=== PATIENT | female | born 1950 | race Caucasian/White ===

== ENCOUNTER 2018-08-13 05:35 | Day surgery (SDC) | payer MEDICARE, OTHER, SELFPAY ==
[2018-08-13] VITALS (8 sets, daily range): BP systolic 115–181; BP diastolic 61–87; PULSE 66–73; RESP 16; TEMP 36.2–36.7; O2SAT 98–100
--- NOTE | 2018-08-13 06:19 | HP.PCM_ITS ---
Problem List (1) Screening for intestinal cancer Status: Acute History of Present Illness Date of Admission: 08/13/18 The patient is a 68 year old F who enjoys good health. Her most recent colonoscopy was 10 years prior. She denies abdominal pain or bright red blood per rectum or melena. She has no known personal or family history of colon polyps or colon cancer. She has not had any unexpected weight loss. She was able to tolerate the bowel prep well Past Medical History Past Medical History (Chronic Problems): Chronic Problems Dyslipidemia (Chronic) History of hypertension (Chronic) Allergies No Known Allergies Allergy (Verified 08/10/18 15:51) Home Medications: Ambulatory Orders Medication Instructions Recorded Calcium (Elemental) [Os-Obed 500] 500 mg PO DAILY@0800 04/11/14 Multivit with Calcium,Iron,Min 1 each PO DAILY 04/11/14 [Multiple Vitamins For Women] Esomeprazole Mag Trihydrate 40 mg PO DINNER 08/10/18 [Nexium] Fluticasone 0.05% [Flonase Nasal 1 spray NASAL QHS 08/10/18 [place]] Glucosam/Som-Msm1/C/[place]/Bosw 1 each PO DAILY 08/10/18 [Osteo Bi-Flex Caplet] Psyllium [Metamucil] 1 packet PO DAILY 08/10/18 Selenium 50 mcg PO Q7D 08/10/18 Surgical History: noncontributory, - - Shoulder surgery Psychiatric History: No pertinent psych hx Smoking Status: Never smoker - *Family History Maternal History Items: No pertinent history Paternal History Items: No pertinent history Review of Systems Constitutional: Denies: Weight Change HEENT: Denies: Difficulty Hearing Cardiovascular: Denies: Chest Pain, Claudication Respiratory: Denies: Cough Gastrointestinal: Denies: Abdominal Pain Neurological: Denies: Balance problems Psychiatric: Denies: Anxiety Endocrine: Denies: Change in Body Habitus VTE Information - Inpt Only VTE Present on Admission: No Patient Problems: Active and Suspected Problems Screening for intestinal cancer (Acute) - Physical Exam General: Alert, Oriented x3, Cooperative, No apparent distress HEENT: Atraumatic Oral: Moist Mucosa Neck: Supple Lungs: Clear to auscultation Cardiovascular: Regular rate, Regular Rhythm Abdomen: Bowel Sounds Present, Soft, Non Tender, Non-Distended Extremities: No clubbing, No Calf Tenderness Skin: No rashes Lymphatic: No Cervical, Supraclavicular, or Inguinal Adenopathy Neurological: Cranial nerves II-XII grossly intact Psych/Mental Status: Normal Affect Assessment/Plan All Active Problems Screening for intestinal cancer (Acute) Hyperglycemia (Acute) Vertigo (Acute) I recommended the patient is screening colonoscopy. She is aware of the t echnique, benefits, risks, alternatives. She has had an opportunity to ask and have questions answered. She has been able to successfully complete her bowel prep. We will proceed as indicated. Primary care physician is Dr. Eleazar Skinner M.D., F.A.C.S.
--- NOTE | 2018-08-13 06:30 | COLBX_PTH ---
PATIENT: GRACIE CASTRO LOC: EN U#:[id number] AGE/SX: 68/F ROOM: RE08/13/[address]: Dr. Mitul Skinner MD : 1950 BED: DIS: 08/13/2018 SPEC #: [id number] RECD: 08/13/18 07:59 STATUS: SARINA LUNA #: [id number] JUANCARLOS: 08/13/18 06:[address]: Mitul Skinner DEPT: SURGICAL PATHOLOGY RECD BY: Dennis Whitley ENTERED: 08/13/18 09:29 SP TYPE: COLON BX OTHR DR: Dr. Eleazar Baeza MD Tissues: SPLENIC FLEXURE Procedures: Surgery Specimen Level IV HEADER OPERATION: Colonoscopy (MOD) PRE-OP DIAGNOSIS: Screening TISSUE SUBMITTED: Biopsy of splenic flexure polyp MICROSCOPIC DIAGNOSIS Splenic flexure polyp, biopsy: Tubular adenoma. EUGENE:mac 08/14/18 MICROSCOPIC DESCRIPTION Slides are reviewed. GROSS DESCRIPTION Received in fixative is one container labeled with the patient's name and designated biopsy of splenic flexure polyp. The specimen consists of one irregular fragment of light meza soft tissue that measures 0.3 x 0.3 x 0.1 cm. The specimen is totally submitted in one cassette. / SJ:rg 08/13/18 TC:1 CPT: 20074
--- NOTE | 2018-08-13 07:10 | OP.ENDO_ITS ---
Patient Name: Joy Gomez Procedure Date: 08/13/2018 6:21 AM Date of : 1950 Age: 68 Procedure: Colonoscopy Indications: Screening for colorectal malignant neoplasm Providers: Mitul Skinner MD Referring MD: Mitul Skinner MD Medicines: Midazolam 5.5 mg IV, Meperidine 100 mg IV Patient Profile: Last Colonoscopy: 10 years ago. Complications: No immediate complications. Procedure: Pre-Anesthesia Assessment: - Prior to the procedure, a History and Physical was performed, and patient medications and allergies were reviewed. The patient's tolerance of previous anesthesia was also reviewed. The risks and benefits of the procedure and the sedation options and risks were discussed with the patient. All questions were answered, and informed consent was obtained. Prior Anticoagulants: The patient has taken no previous anticoagulant or antiplatelet agents. ASA Grade Assessment: I - A normal, healthy patient. After reviewing the risks and benefits, the patient was deemed in satisfactory condition to undergo the procedure. After I obtained informed consent, the scope was passed under direct vision. Throughout the procedure, the patient's blood pressure, pulse, and oxygen saturations were monitored continuously. The colonoscope was introduced through the anus and advanced to the cecum, identified by appendiceal orifice and ileocecal valve. The colonoscopy was performed with moderate difficulty due to a tortuous colon. Successful completion of the procedure was aided by increasing the dose of sedation medication and applying abdominal pressure. The patient tolerated the procedure well. The quality of the bowel preparation was good. Moderate Sedation: Moderate (conscious) sedation was personally administered by the endoscopist. The following parameters were monitored: oxygen saturation, heart rate, blood pressure, and response to care. Total physician intraservice time was 30 minutes. Scope In: 6:33:38 AM Scope Withdrawal Time 0 hours 19 minutes 54 seconds Scope Out: 7:03:01 AM Total Procedure Duration Time 0 hours 29 minutes 23 seconds Findings: The digital rectal exam findings include anal stricture. Pertinent negatives include no anal lesion or abnormality was detected. A 6 mm polyp was found in the splenic flexure. The polyp was sessile. The polyp was removed with a cold biopsy forceps. Resection and retrieval were complete. The colon (entire examined portion) was moderately tortuous. The exam was otherwise without abnormality. Impression: - Anal stricture found on digital rectal exam. - One 6 mm polyp at the splenic flexure, removed with a cold biopsy forceps. Resected and retrieved. - Tortuous colon. - The examination was otherwise normal. Recommendation: - Written discharge instructions were provided to the patient. - Repeat colonoscopy in 5 years for surveillance based on pathology results. - Telephone my office for pathology results in 1 week. - Resume previous diet. - Continue present medications. Procedure Code(s): --- Professional --- 06907, Colonoscopy, flexible; with biopsy, single or multiple 18275, 59, Moderate sedation services provided by the same physician or other qualified health home health caregiver performing the diagnostic or therapeutic service that the sedation supports, requiring the presence of an independent trained observer to assist in the monitoring of the patient's level of consciousness and physiological status; initial 15 minutes of intraservice time, patient age 5 years or older Diagnosis Code(s): --- Professional --- Z12.11, Encounter for screening for malignant neoplasm of colon K62.4, Stenosis of anus and rectum D12.3, Benign neoplasm of transverse colon (hepatic flexure or splenic flexure) Q43.8, Other specified congenital malformations of intestine CPT copyright 2017 [employer]. All rights reserved. The codes documented in this report are preliminary and upon certified procedural coder review may be revised to meet current compliance requirements. Mitul Skinner MD 08/13/2018 7:10:23 AM This report has been signed electronically. Number of Addenda: 0 Note Initiated On: 08/13/2018 6:21 AM
== END 2018-08-13 08:04 | disposition home or self-care (01) ==
LOC: EN 05:36 → AC 05:39
PROVIDERS: Family Provider Family Medicine; PCP Family Medicine; Visit Provider Surgery
PROC: 0DJD8ZZ Inspection of Lower Intestinal Tract, Via Natural or Artificial Opening Endoscopic (ICD-10-PCS; CPT 45378; principal; 2018-08-13 06:25)
DX: Z12.11 Encounter for screening for malignant neoplasm of colon (principal); D12.3 Benign neoplasm of transverse colon; K62.4 Stenosis of anus and rectum; Q43.8 Other specified congenital malformations of intestine; E78.5 Hyperlipidemia, unspecified; Z86.79 Personal history of other diseases of the circulatory system; Z79.899 Other long term (current) drug therapy
CPT/HCPCS: 45380; 88305; 99152; 99153; J7120

== ENCOUNTER → 2018-10-12 14:32 | Outpatient (CLI) | payer MEDICARE, OTHER, SELFPAY ==
--- NOTE | 2018-10-12 14:35 | BI_ITS ---
MAMMOGRAPHY - BILATERAL SCREENING REASON FOR EXAM: Female, 68 years old. Routine annual screening examination. PERTINENT HISTORY: Sister with breast cancer. Mother with breast cancer. TECHNIQUE: Digital bilateral breast samia (3D mammographic acquisition) in the CC and MLO projections. 2-D mediolateral oblique (MLO) and craniocaudad (CC) views of both breasts were obtained. CAD: Full Field Digital Mammography with Computer Added Detection was performed. COMPARISON: Comparison is made with prior study dated September 16, 2017 and September 10, 2016. FINDINGS: Breast Composition: There are scattered areas of fibroglandular density. There are no dominant masses or suspicious calcifications. No other significant abnormalities are identified. There has been no significant change since the prior study. BI/SCREENING MAMM (CAD), BILAT IMPRESSION: Stable bilateral screening mammogram. Yearly follow-up mammogram recommended. (A) ASSESSMENT CATEGORY: BIRADS Category 1: Negative. A letter regarding these results will be sent to the patient by the facility within 30 days. Approximately 10% of breast cancers are not detected by mammography. A normal mammogram should not delay biopsy of a clinically suspicious abnormality. [id number] Electronically Signed: Anton Love MD at 15:40 EST Tel [phone], Service support ,
--- OUTSIDE RECORDS SUMMARY | 2018-11-24 12:23 | XMS RPT_ITS | Clinical Summary ---
:1950 Author Organization Formerly [facility], [facility] Address [facility] [place] [address] Phone Care Team Providers Name Role Phone Tracey Mccann MD Unavailable Conditions or Problems Problem Name Problem Onset Status Entry Provider Comment Standard Annotate Code Date Date Description Vaginal atrophy 640467381 Active Tracey Aguayo Atrophy of (SNOMED [address]) MD Encounter for [id number] Active Tracey Aguayo Gynecologic gynecological (SNOMED 0 [address]) (general) (routine) with abnormal findings Screening [id number] Active Tracey Aguayo Screening mammogram for (SNOMED 0/06 0/08 [address] breast cancer [address]) Medications Medication Instructions Start Stop Generic Name NDC Provider Date Date OSPHENA 60 MG One tablet by / OSPEMIFENE 21031873950 Tracey Aguayo TABS mouth daily 23 Siobhan DELUCA NEXIUM 40 MG / ESOMEPRAZOLE [id number] Tracey Aguayo CPDR 23 MAGNESIUM Siobhan DELUCA METRONIDAZOLE / METRONIDAZOLE [id number] Tracey Aguayo 0.75 % GEL 23 Siobhan DELUCA THERATEARS / AQE-MDI-LDOZKMC [id number] Tracey Aguayo NUTRITION CAPS 23 D OIL-VITAMIN E Siobhan DELUCA COQ10 200 MG / COENZYME Q10 [id number] Tracey Aguayo CAPS 23 Siobhan DELUCA OCEANIC SELENIUM / SELENIUM [id number] Tracey Aguayo 200 MCG TABS 23 Siobhan DELUCA MULTIVITAMIN / MULTIPLE [id number] Tracey Aguayo WOMEN 50+ TABS 23 VITAMINS-MINERA Siobhan EASTON MD CALCIUM + D3 2017/10/ CALCIUM [id number] Tracey Olivier 600-800 MG-UNIT 23 CARB-CHOLECALCI Siobhan ECHOLS MD Medications Administered No information available. Allergies, Adverse Reactions, Alerts Observed no known allergies at Results Date Name Value Unit Range Flag Description Office Visit: new annual MEDS REVIEW Done Documentation of current medications (procedure) FALLRSFADY No Fall risk assessment MAMMOGRAM Normal Bilateral Breast Mammogram screening PAP SMEAR Normal General categories [Interpretation] of Cervical or vaginal smear or scraping by Cyto stain ORALTOBACUSE Never Tobacco smoking status NHIS SMOK STATUS Never smoker Tobacco use [facility] Plan of Care Type Date Detail Pending order Mammogram, Screening, both breasts Procedures No information available. Vital Signs Date Name Value Unit Description BMI (Body Mass Index) 21.46 kg/m2 Body Mass Index [Ratio] Body Temperature 97.4 [degF] temperature E&M Body Temperature 36.33 [place] temperature in centigrade E&M BP Diastolic 68 mm[Hg] blood pressure, diastolic - 8462-4 BP Systolic 137 mm[Hg] blood pressure, systolic - 8480-6 Heart Rate 65 /min pulse rate E&M - 8867-4 Height 66 [in_us] height E&M - 8302-2 Height 167.64 cm height in centimeters E&M Respiratory Rate 16 /min respiratory rate E&M - 9279-1 Weight Measured 133.0 [lb_av] weight E&M - 3141-9 Weight Measured 60.33 kg weight in kilograms E&M
--- OUTSIDE RECORDS SUMMARY | 2018-11-24 12:23 | XMS RPT_ITS ---
:1950 Author Organization [facility] Care Team Providers Name Role Phone Nurse, Surgery Attending Unavailable Eleazar Baeza Referring Unavailable Cebul, Mitul Attending Unavailable Cebul, Mitul Referring Unavailable Baeza, Eleazar Primary Care Unavailable Cebul, Mitul Attending Unavailable Cebul, Mitul Referring Unavailable Baeza, Eleazar Primary Care Unavailable Cebul, Mitul Consulting Unavailable Baeza, Eleazar Attending Unavailable Baeza, Eleazar Referring Unavailable Baeza, Eleazar Primary Care Unavailable PROBLEMS PROBLEMS No Problem Records FoundPROCEDURES PROCEDURES No Procedure Records FoundRESULTS RESULTS SCREENING MAMM (CAD), Observed: 10/12/2018 Status: F Source: [facility] 2:35 PM [facility] REPOSITORY [facility] Imaging Services [address] [place] [address] SCREENING MAMM (CAD), BILAT MR#: [id number] Acct: [id number] Name: JOY CASTRO Rep #: [id number] : 1950 F 68 From: Anton Love MD PCP: Eleazar Baeza MD Status: [facility] Study: SCREENING MAMM (CAD), BILAT Date of Exam: 10/12/18 Exam# [id number] Ordering Dr: Eleazar Baeza MD MAMMOGRAPHY - BILATERAL SCREENING REASON FOR EXAM: Female, 68 years old. Routine annual screening examination. PERTINENT HISTORY: Sister with breast cancer. Mother with breast cancer. TECHNIQUE: Digital bilateral breast samia (3D mammographic acquisition) in the CC and MLO projections. 2-D mediolateral oblique (MLO) and craniocaudad (CC) views of both breasts were obtained. CAD: Full Field Digital Mammography with Computer Added Detection was performed. COMPARISON: Comparison is made with prior study dated September 16, 2017 and September 10, 2016. FINDINGS: Breast Composition: There are scattered areas of fibroglandular density. There are no dominant masses or suspicious calcifications. No other significant abnormalities are identified. There has been no significant change since the prior study. BI/SCREENING MAMM (CAD), BILAT IMPRESSION: Stable bilateral screening mammogram. Yearly follow-up mammogram recommended. (A) ASSESSMENT CATEGORY: BIRADS Category 1: Negative. A letter regarding these results will be sent to the patient by the facility within 30 days. Approximately 10% of breast cancers are not detected by mammography. A normal mammogram should not delay biopsy of a clinically suspicious abnormality. [id number] Electronically Signed: Anton Love MD at 15:40 EST Tel [phone], Service support , CC: Eleazar Baeza MD Bullet Assembly Press Operator: Signed OPERATIVE REPORT - Observed: 08/13/2018 Status: F Source: [facility] 7:10 AM [facility] REPOSITORY [facility] Medical Records Department [address] [place] [address] Operative Report - Endoscopy MR#: [id number] Acct: [id number] Name: JOY CASTRO Rep #: [id number] : 1950 68 From: Mitul Skinner MD PCP: Eleazar Baeza MD Status: REG [facility] Patient Name: Joy Castro Procedure Date: 08/13/2018 6:21 AM Date of : 1950 Age: 68 Procedure: Colonoscopy Indications: Screening for colorectal malignant neoplasm Providers: Mitul Skinner MD Referring MD: Mitul Skinner MD Medicines: Midazolam 5.5 mg IV, Meperidine 100 mg IV Patient Profile: Last Colonoscopy: 10 years ago. Complications: No immediate complications. Procedure: Pre-Anesthesia Assessment: - Prior to the procedure, a History and Physical was performed, and patient medications and allergies were reviewed. The patient's tolerance of previous anesthesia was also reviewed. The risks and benefits of the procedure and the sedation options and risks were discussed with the patient. All questions were answered, and informed consent was obtained. Prior Anticoagulants: The patient has taken no previous anticoagulant or antiplatelet agents. ASA Grade Assessment: I - A normal, healthy patient. After reviewing the risks and benefits, the patient was deemed in satisfactory condition to undergo the procedure. After I obtained informed consent, the scope was passed under direct vision. Throughout the procedure, the patient's blood pressure, pulse, and oxygen saturations were monitored continuously. The colonoscope was introduced through the anus and advanced to the cecum, identified by appendiceal orifice and ileocecal valve. The colonoscopy was performed with moderate difficulty due to a tortuous colon. Successful completion of the procedure was aided by increasing the dose of sedation medication and applying abdominal pressure. The patient tolerated the procedure well. The quality of the bowel preparation was good. Moderate Sedation: Moderate (conscious) sedation was personally administered by the endoscopist. The following parameters were monitored: oxygen saturation, heart rate, blood pressure, and response to care. Total physician intraservice time was 30 minutes. Scope In: 6:33:38 AM Scope Withdrawal Time 0 hours 19 minutes 54 seconds Scope Out: 7:03:01 AM Total Procedure Duration Time 0 hours 29 minutes 23 seconds Findings: The digital rectal exam findings include anal stricture. Pertinent negatives include no anal lesion or abnormality was detected. A 6 mm polyp was found in the splenic flexure. The polyp was sessile. The polyp was removed with a cold biopsy forceps. Resection and retrieval were complete. The colon (entire examined portion) was moderately tortuous. The exam was otherwise without abnormality. Impression: - Anal stricture found on digital rectal exam. - One 6 mm polyp at the splenic flexure, removed with a cold biopsy forceps. Resected and retrieved. - Tortuous colon. - The examination was otherwise normal. Recommendation: - Written discharge instructions were provided to the patient. - Repeat colonoscopy in 5 years for surveillance based on pathology results. - Telephone my office for pathology results in 1 week. - Resume previous diet. - Continue present medications. Procedure Code(s): --- Professional --- 44067, Colonoscopy, flexible; with biopsy, single or multiple 24996, 59, Moderate sedation services provided by the same physician or other qualified health home health aide caregiver performing the diagnostic or therapeutic service that the sedation supports, requiring the presence of an independent trained observer to assist in the monitoring of the patient's level of consciousness and physiological status; initial 15 minutes of intraservice time, patient age 5 years or older Diagnosis Code(s): --- Professional --- Z12.11, Encounter for screening for malignant neoplasm of colon K62.4, Stenosis of anus and rectum D12.3, Benign neoplasm of transverse colon (hepatic flexure or splenic flexure) Q43.8, Other specified congenital malformations of intestine CPT copyright 2017 [employer]. All rights reserved. The codes documented in this report are preliminary and upon unix analyst review may be revised to meet current compliance requirements. Mitul Skinner MD 08/13/2018 7:10:23 AM This report has been signed electronically. Number of Addenda: 0 Note Initiated On: 08/13/2018 6:21 AM 08/13/18 0710 Date Mitul Skinner MD Cosigner Signature: Date (if indicated) CC: Eleazar Baeza MD; Mitul Skinner MD Date Dictated: 08/13/18 0621 Date Transcribed: Bullet Assembly Press Operator: MARLO Signed COLON BIOPSY (CHOOSE Observed: 08/13/2018 Status: F Source: [place] SITE) 6:30 AM [facility] REPOSITORY Patient: JOY CASTRO : 1950 (68/F) Acct Num: [id number] Phys: Brody DELUCA,Mitul Unit Num: [id number] Loc: EN Specimen: [id number] Received: 08/13/18 - 0759 Spec Type: COLON BX TISSUES 1 TISSUES: SPLENIC FLEXURE GROSS DESCRIPTION Received in fixative is one container labeled with the patient's name and designated biopsy of splenic flexure polyp. The specimen consists of one irregular fragment of light meza soft tissue that measures 0.3 x 0.3 x 0.1 cm. The specimen is totally submitted in one cassette. / SJ:mac 08/13/18 TC:1 CPT: 26010 HEADER OPERATION: Colonoscopy (MOD) PRE-OP DIAGNOSIS: Screening TISSUE SUBMITTED: Biopsy of splenic flexure polyp MICROSCOPIC DESCRIPTION Slides are reviewed. MICROSCOPIC DIAGNOSIS Splenic flexure polyp, biopsy: Tubular adenoma. SJ:mac 08/14/18 Signed Earl Sykes 08/14/18 <signature on file> Performed By: #### PCOLBX #### [facility] [address] [place], [address] HISTORY AND PHYSICAL Observed: 08/13/2018 Status: F Source: [place] EXAM 6:19 AM [facility] REPOSITORY [facility] Medical Records Department [address] [place] [address] History and Physical 08/13/18 0617 MR#: [id number] Acct: [id number] Name: JOY CASTRO Rep #: [id number] : 1950 68 From: Mitul Skinner MD PCP: Eleazar Baeza MD Status: REG [facility] Y Location: [place] [address] Problem List (1) Screening for intestinal cancer Status: Acute History of Present Illness Date of Admission: 08/13/18 The patient is a 68 year old F who enjoys good health. Her most recent colonoscopy was 10 years prior. She denies abdominal pain or bright red blood per rectum or melena. She has no known personal or family history of colon polyps or colon cancer. She has not had any unexpected weight loss. She was able to tolerate the bowel prep well Past Medical History Past Medical History (Chronic Problems): Chronic Problems Dyslipidemia (Chronic) History of hypertension (Chronic) Allergies No Known Allergies Allergy (Verified 08/10/18 15:51) Home Medications: Ambulatory Orders Medication Instructions Recorded Calcium (Elemental) [Os-Obed 500] 500 mg PO DAILY@0800 04/11/14 Surgical History: noncontributory, - - Shoulder surgery Psychiatric History: No pertinent psych hx Smoking Status: Never smoker - *Family History Maternal History Items: No pertinent history Paternal History Items: No pertinent history Review of Systems Constitutional: Denies: Weight Change HEENT: Denies: Difficulty Hearing Cardiovascular: Denies: Chest Pain, Claudication Respiratory: Denies: Cough Gastrointestinal: Denies: Abdominal Pain Neurological: Denies: Balance problems Psychiatric: Denies: Anxiety Endocrine: Denies: Change in Body Habitus VTE Information - Inpt Only VTE Present on Admission: No Patient Problems: Active and Suspected Problems Screening for intestinal cancer (Acute) - Physical Exam General: Alert, Oriented x3, Cooperative, No apparent distress HEENT: Atraumatic Oral: Moist Mucosa Neck: Supple Lungs: Clear to auscultation Cardiovascular: Regular rate, Regular Rhythm Abdomen: Bowel Sounds Present, Soft, Non Tender, Non-Distended Extremities: No clubbing, No Calf Tenderness Skin: No rashes Lymphatic: No Cervical, Supraclavicular, or Inguinal Adenopathy Neurological: Cranial nerves II-XII grossly intact Psych/Mental Status: Normal Affect Assessment/Plan All Active Problems Screening for intestinal cancer (Acute) Hyperglycemia (Acute) Vertigo (Acute) I recommended the patient is screening colonoscopy. She is aware of the technique, benefits, risks, alternatives. She has had an opportunity to ask and have questions answered. She has been able to successfully complete her bowel prep. We will proceed as indicated. Primary care physician is Dr. Eleazar Skinner M.D., F.A.C.S. 08/13/18 0619 <Electronically signed by Mitul Skinner MD> Date Mitul Skinner MD Cosigner Signature: Date (if applicable) CC: Eleazar Baeza MD; Mitul Skinner MD Signed ALLERGIES ALLERGIES DATE TYPE / CODE NAME / CODE REACTION SEVERITY SOURCE 08/10/2018 Drug No Known Unknown [place] [facility] Allergy/4160 Allergies/F00 Hospital 51957(SNOMED 9568083(RXNOR Repository CT) M) ENCOUNTERS ENCOUNTERS ADMIT/DISCHARGE ACCOUNT ADMITTING ENCOUNTER LOCATION SOURCE NUMBER CLASS 10/12/2018 [id number] Amb[place] [facility] ing:OPBI Repository 08/13/2018 [id number] Ambulatory BMSBuilding:B [place] [facility] Repository 08/13/2018/ [id number] Ambulatory [place] 9 [facility] ing:EN Repository 05/22/2018/ [id number] Ambulatory BMSBuilding:B [place] [facility] Repository PAYERS PAYERS ENCOUNTER GUARANTOR PAYER SUBSCRIBER SOURCE 10/12/2018 JOY [place] [id number] Insurance:MEDICARE ZEMROCKDOB: [id number] [address]Mja: Number: Repository [id number] () Date:2018-09-22 10/12/2018 Secondary JOY Gregory Insurance:MEDICAL ZEMROCKDOB: [facility] [id number] [facility] Number: Repository [id number] Date:2920-74-04PW [address] [place] [address]OZ: 10/12/2018 Tertiary NOT GIVENUNK [place] Insurance:SELF PAY [facility] Number: Effective Repository Date:2018-09-22 08/13/2018 JOY J Primary JOY J [place] [id number] Insurance:MEDICARE ZEMROCKDOB: [facility] [id number] [address]Qat: Number: Repository [id number] (HP) Date:2018-05-22 08/13/2018 Secondary JOY J [place] Insurance:MEDICAL ZEMROCKDOB: [facility] [id number] Hospital Number: Repository [id number] Date:[id number] [address]JU: 08/13/2018 Tertiary NOT GIVENUNK [place] Insurance:SELF PAY [facility] Number: Effective Repository Date:2018-08-13 08/13/2018 JOY J Primary JOY J [place] [id number] Insurance:MEDICARE ZEMROCKDOB: [facility] PART A [facility] [id number] [address]Hyd: Number: Repository [id number] (HP) Date:2018-05-22 08/13/2018 Secondary JOY J [place] Insurance:MEDICAL ZEMROCKDOB: [facility] [id number] Hospital Number: Repository [id number] Date:[id number] [address]DW: 08/13/2018 Tertiary NOT GIVENUNK [place] Insurance:SELF PAY [facility] Number: Effective Repository Date:2018-05-22 05/22/2018 JOY J Primary JOY J [place] [id number] Insurance:MEDICARE ZEMROCKDOB: [facility] [id number] [facility] Hospital [address]Erx: Number: Repository [id number] (HP) Date:2018-05-22 05/22/2018 Secondary JOY J [place] Insurance:MEDICAL ZEMROCKDOB: [place] [id number] Hospital Number: Repository [id number] Date:0158-14-86WW [address], [place] [address]HA: 05/22/2018 Tertiary NOT GIVENMARILYN [place] Insurance:SELF PAY [facility] Number: Effective Repository Date:2018-05-22
--- OUTSIDE RECORDS SUMMARY | 2018-11-24 12:23 | XMS RPT_ITS | Clinical Summary ---
:1950 [address] [facility], [facility] Address [address] [place] [address] Phone Care Team Providers Name Role Phone Siobhan DELUCA, Tracey Aguayo Unavailable Conditions or Problems Problem Problem Onset Status Entry Provider Comment Standard Annotate Name Code Date Date Description Screening [id number] Active Tracey Aguayo Screening mammogram (SN / Siobhan mammography for breast CT) cancer Medications No information available. Medications Administered No information available. Allergies, Adverse Reactions, Alerts No information available. Results No information available. Plan of Care Type Date Detail Appointment 10:00 AM Tracey Mccann MD, [address] [place] [address], Third Floor, [place], [address], Pending order Mammogram, Screening, both breasts Procedures No information available. Vital Signs Date Name Value Unit Description Body Temperature 97.9 [degF] temperature E&M
--- OUTSIDE RECORDS SUMMARY | 2018-11-24 12:23 | XMS RPT_ITS | Clinical Summary ---
:1950 Author Organization [facility], [facility] Address [facility] [place] [address] Phone Care Team Providers Name Role Phone Tracey Mccann MD Unavailable Conditions or Problems Problem Name Problem Onset Status Entry Provider Comment Standard Annotate Code Date Date Description Vaginal atrophy [id number] Active Tracey Aguayo Atrophy of (SNOMED [address]) MD Encounter for 92733690 Active Tracey Aguayo Gynecologic gynecological (SNOMED 0 [address]) (general) (routine) with abnormal findings Screening 45895790 Active Tracey Aguayo Screening mammogram for (SNOMED 006 0/08 Marcanthjohn mamm[address] breast cancer CT) Medications Medication Instructions Start Stop Generic Name NDC Provider Date Date OSPHENA 60 MG One tablet by / OSPEMIFENE 10582711866 Tracey Aguayo TABS mouth daily 23 Siobhan DELUCA NEXIUM 40 MG / ESOMEPRAZOLE 94773146438 Tracey Aguayo CPDR 23 MAGNESIUM Siobhan DELUCA METRONIDAZOLE / METRONIDAZOLE 13130199134 Tracey Aguayo 0.75 % GEL 23 Siobhan DELUCA THERATEARS / [id number] 10000924116 Tracey Aguayo NUTRITION CAPS 23 D OIL-VITAMIN E Siobhan DELUCA COQ10 200 MG / COENZYME Q10 82432663036 Tracey Aguayo CAPS 23 Siobhan DELUCA OCEANIC SELENIUM / SELENIUM 98732602865 Tracey Aguayo 200 MCG TABS 23 Siobhan DELUCA MULTIVITAMIN / MULTIPLE 97731532227 Tracey Aguayo WOMEN 50+ TABS 23 VITAMINS-MINERA Siobhan EASTON MD CALCIUM + D3 2017/10/ CALCIUM 64763666624 Tracey Aguayo 600-800 MG-UNIT 23 CARB-CHOLECALCI Siobhan ECHOLS MD Medications Administered No information available. Allergies, Adverse Reactions, Alerts Observed no known allergies at Results Date Name Value Unit Range Flag Description Office Visit: new annual MEDS REVIEW Done Documentation of current medications (procedure) FALLRSKABARBRAES No Fall risk assessment MAMMOGRAM Normal Bilateral Breast Mammogram screening PAP SMEAR Normal General categories [Interpretation] of Cervical or vaginal smear or scraping by Cyto stain ORALTOBACUSE Never Tobacco smoking status NHIS SMOK STATUS Never smoker Tobacco use [facility] Plan of Care Type Date Detail Appointment 10:00 AM Tracey Mccann MD, [address] Floor, [place], [address], Pending order Mammogram, Screening, both breasts Procedures No information available. Vital Signs Date Name Value Unit Description BMI (Body Mass Index) 21.46 kg/m2 Body Mass Index [Ratio] Body Temperature 97.4 [degF] temperature E&M Body Temperature 36.33 Haaw temperature in centigrade E&M BP Diastolic 68 [...]
== END ==
PROVIDERS: Family Provider Family Medicine; PCP Family Medicine; Referring Provider Family Medicine; Visit Provider Family Medicine
DX: Z12.31 Encounter for screening mammogram for malignant neoplasm of breast (principal)
CPT/HCPCS: 77063; 77067

== ENCOUNTER → 2018-11-12 09:34 | Outpatient (CLI) | payer MEDICARE, OTHER, SELFPAY ==
[2018-11-12 13:06] LABS: BUN 16 mg/dL (7-18); Creatinine, Serum 0.53 mg/dL (0.55-1.02); Glucose 87 mg/dL (74-106)
[2018-11-12 13:07] LABS: Anion Gap 8 (5-15); BUN/Creat Ratio 30.2 RATIO (10-20); Calcium,Total 8.3 mg/dL (8.5-10.1); Chloride 110 mmol/L (98-107); Cholesterol 237 mg/dL (200); EST Glomerular Filtration Rate 123 mL/min (>60); Est Glom Filt Rate - Afr Amer 149 mL/min (>60); Free T3 2.7 pg/mL (2.18-3.98); High Density Lipoprotein 92 mg/dL; Potassium 3.9 mmol/L (3.5-5.1); Sodium Level 144 mmol/L (136-145); T4 Free Direct 0.92 ng/dL (0.76-1.46); Thyroid Stim Hormone (TSH) 5.23 uIU/mL (0.358-3.74); Triglycerides 75 mg/dL; Very Low Density Lipoprotein 15 mg/dL (5-40)
--- NOTE | 2018-11-12 13:16 | BD_ITS ---
STUDY: DUAL ENERGY X-RAY ABSORPTIOMETRY / DXA REASON FOR EXAM: Female, 68 years old. The patient is postmenopausal. Loss of height. TECHNIQUE: Bone Mineral Density (BMD) measurements of lumbar spine and bilateral hips were obtained. COMPARISON: Comparison is made with prior study dated January 26, 2013. FINDINGS: Lumbar Spine (L1-L4): g/cm2 (1.009) / T-score (-1.4) / Z-score (0.2) Findings are suggestive of osteopenia with a moderate fracture risk. Increased thoracic kyphosis. Left Femur Total: g/cm2 (0.763) / T-score (-1.9) / Z-score (-0.7) Left Femoral Neck: g/cm2 (0.793) / T-score (-1.8) / Z-score (-0.2) Right Femur Total: g/cm2 (0.743) / T-score (-2.1) / Z-score (-0.8) Right Femoral Neck: g/cm2 (0.750) / T-score (-2.1) / Z-score (-0.5) The T-Scores on the most recent prior examination were: Lumbar Spine (L1-L4): There has been worsening of bone density since the previous examination. Left Femur Total: which represents a worsening of 5%. Right Femur Total: which represents a worsening of 4.4%. BD/Dexa Bone Density Study IMPRESSION: The patient is considered osteopenic as outlined below according to World Richard Organization (WHO) criteria with a moderate fracture risk. There has been worsening of bone density since the previous examination. Reference Information: The T-score is the number of standard deviations above or below the standard which is normal for young adults at their peak bone mineral density. The World Health Organization (WHO) interprets the T-scores as follows: Above -1 Normal bone density Between -1 and -2.5 Osteopenia Equal to / or below -2.5 Osteoporosis As a practical clinical guideline, osteopenia may be graded as follows: Mild -1 through -1.5 Moderate -1.6 through -2.0 Severe -2.1 through -2.4 The Z-score is the number of standard deviations above or below age-matched controls. A Z-score of less than -1.5 would be considered abnormal. References: 1. NIH Osteoporosis and Related Bone Diseases http://www.osteo.org 2. International Society for Clinical Densitometry http://www.iscd.org 3. National Osteoporosis Foundation http://www.nof.org Electronically Signed: Anton Love MD at 9:58 EST Tel [phone], Service support ,
== END ==
PROVIDERS: Family Provider Family Medicine; PCP Family Medicine; Visit Provider Family Medicine
DX: M85.80 Other specified disorders of bone density and structure, unspecified site (principal); I10 Essential (primary) hypertension; E03.9 Hypothyroidism, unspecified; Z78.0 Asymptomatic menopausal state
CPT/HCPCS: 36415; 77080; 80048; 80061; 84439; 84443; 84481

== ENCOUNTER → 2018-12-31 09:39 | Outpatient (CLI) | payer MEDICARE, OTHER, SELFPAY ==
[2018-12-30 11:18] VITALS: BMI 20.9
[2019-01-01 18:38] LABS: Rubeola IgG Ab > 300.0 AU/mL (Immune >29.9)
== END ==
PROVIDERS: Family Provider Family Medicine; PCP Family Medicine; Visit Provider Family Medicine
DX: Z78.9 Other specified health status (principal)
CPT/HCPCS: 36415; 86765

== ENCOUNTER → 2019-02-23 | Outpatient (CLI) | payer MEDICARE, OTHER, SELFPAY ==
[2018-12-30 11:18] VITALS: BMI 20.9
[2019-02-23 10:59] LABS: Albumin, Serum 3.4 g/dL (3.2-5.0); BUN 15 mg/dL (7-18); BUN/Creat Ratio 27.4 RATIO (10-20); Calcium,Total 8.3 mg/dL (8.5-10.1); Chloride 109 mmol/L (98-107); Creatinine, Serum 0.55 mg/dL (0.55-1.02); EST Glomerular Filtration Rate 118 mL/min (>60); Est Glom Filt Rate - Afr Amer 142 mL/min (>60); Free T3 2.1 pg/mL (2.18-3.98); Glucose 81 mg/dL (74-106); Magnesium 2.2 mg/dL (1.6-2.6); Phosphorus 3.3 mg/dL (2.5-4.9); Potassium 3.9 mmol/L (3.5-5.1); Sodium Level 140 mmol/L (136-145); T4 Free Direct 0.79 ng/dL (0.76-1.46); Thyroid Stim Hormone (TSH) 5.73 uIU/mL (0.358-3.74)
[2019-02-23 11:00] LABS: Vitamin D,25 Hydroxy 44.3 ng/mL (29.95-100.01)
== END | disposition home or self-care (01) ==
LOC: MFPLAB 09:20
PROVIDERS: Family Provider Family Medicine; PCP Family Medicine; Referring Provider Family Medicine; Visit Provider Family Medicine
DX: R79.89 Other specified abnormal findings of blood chemistry (principal); M85.80 Other specified disorders of bone density and structure, unspecified site
CPT/HCPCS: 36415; 80069; 82306; 83735; 84439; 84443; 84481

== ENCOUNTER → 2019-04-22 | Outpatient (CLI) | payer MEDICARE, OTHER, SELFPAY ==
[2018-12-30 11:18] VITALS: BMI 20.9
[2019-04-22 12:31] LABS: T4 Free Direct 0.86 ng/dL (0.76-1.46); Thyroid Stim Hormone (TSH) 3.03 uIU/mL (0.358-3.74)
== END | disposition home or self-care (01) ==
LOC: MFPLAB 09:39
PROVIDERS: Family Provider Family Medicine; PCP Family Medicine; Referring Provider Family Medicine; Visit Provider Family Medicine
DX: R79.89 Other specified abnormal findings of blood chemistry (principal)
CPT/HCPCS: 36415; 84439; 84443

== ENCOUNTER → 2019-06-24 | Outpatient (CLI) | payer MEDICARE, OTHER, SELFPAY ==
[2018-12-30 11:18] VITALS: BMI 20.9
[2019-06-24 10:27] LABS: T4 Free Direct 1.14 ng/dL (0.76-1.46); Thyroid Stim Hormone (TSH) 1.38 uIU/mL (0.358-3.74)
== END | disposition home or self-care (01) ==
PROVIDERS: Family Provider Family Medicine; PCP Family Medicine; Referring Provider Family Medicine; Visit Provider Family Medicine
DX: E03.9 Hypothyroidism, unspecified (principal); R79.89 Other specified abnormal findings of blood chemistry
CPT/HCPCS: 36415; 84439; 84443

== ENCOUNTER 2019-09-22 09:55 | Emergency (ER) | payer MEDICARE, OTHER, SELFPAY ==
[2019-08-17 16:20] VITALS: BMI 20.9
[2019-09-22 09:56] VITALS: BP 165/91; PULSE 75; RESP 14; TEMP 36.8; O2SAT 100; BMI 21.5
--- NOTE | 2019-09-22 09:58 | ED.RN ---
SPOUSE RUDE IN TRIAGE. PT COME IN AFTER A PT WITH CP AND NEW ONSET AFIB BUT SPOUSE THOUGHT HIS SHOULD BE SEEN FIRST. TRIED TO EXPLAIN TO SPOUSE THE PROCESS, BUT SPOUSE DID NOT CARE.
--- NOTE | 2019-09-22 10:39 | CT_ITS ---
STUDY: CT ABDOMEN AND PELVIS WITHOUT CONTRAST REASON FOR EXAM: Female, 69 years old. Right lower quadrant pain. RADIATION DOSAGE (If Supplied By Facility): CTDIvol = ( 9.15 ) mGy, DLP = ( 714.94 ) mGycm TECHNIQUE: Transaxial images were obtained from the dome of the diaphragm to the symphysis pubis without oral contrast, and without intravenous contrast. Sagittal and coronal images were reconstructed. Individualized dose optimization techniques were used for this CT. COMPARISON: None. FINDINGS: Minimal increased linear markings at the lung bases suggestive of linear atelectasis and/or scarring. The visualized portions of the heart are within normal limits. Normal liver. Normal gallbladder and extrahepatic biliary system. Normal spleen. Normal pancreas. Normal bilateral adrenal glands. Right perinephric and periureteric stranding. Moderate degree of right hydronephrosis and right hydroureter due to a 3 mm catheter is at the right ureterovesical junction. A small amount of perinephric fluid is seen on the right side. There are several nonobstructive right intrarenal calculi the largest measuring 7 mm. Left parapelvic cysts. Normal visualized stomach. Normal small intestine. Normal colon. The appendix is visualized and appears normal. Normal abdominal aorta. Normal inferior vena cava. Normal retroperitoneum. Normal urinary bladder. There is a small umbilical hernia containing fat. Normal osseous structures. CT/Abdomen/Pelvis W IV Cont ONLY IMPRESSION: 3 mm calculus at the right uterovesical junction causing right hydronephrosis with right hydroureter and perinephric and periureteric stranding. Nonobstructive right intrarenal calculi. Left parapelvic renal cysts. Linear atelectasis and/or scarring at the lung bases. Electronically Signed: Anton Love, at 12:18 EST , Service support ,
--- NOTE | 2019-09-22 10:41 | ED.DCSUM_ITS ---
- ER Visit Summary Date of Service: 09/22/19 Chief Complaint: Right lower quadrant abdominal pain History of Present Illness: The patient is a 69 F past medical history of hypothyroidism. Patient's had right lower quadrant abdominal pain since 2 hours ago. Started stated, high right flank and out to the right lower quadrant. Associated nausea vomiting. No diarrhea or fever. Normal bowel movements today. No dysuria. No prior history. No trauma. No history of stone. Physical Examination: Older female complaining of pain. at bedside. Vital signs are stable afebrile. HEENT exam normal. Neck nontender. Lungs clear to auscultation. Heart regular rhythm no murmur. Abdomen soft. Nondistended. Normal bowel sounds no peritoneal signs. No hernias or masses. No signs of obstruction. She points to the right lower quadrant is not specifically tender. Back nontender. Patient moving all 4 extremities. Neurovascular intact. Neurologically she is awake alert with no focal motor deficits. Test Results: CBC shows white count 9. Hemoglobin 12. Chemistries normal normal BUN and creatinine is 0.8. Liver enzymes normal. UA normal. Very small amount of blood and macroscopic none in the micro. No signs of infection. No nitrates. CAT scan of the abdomen and pelvis with shows a right UVJ stone with hydro-about 3 mm. Was also 2 stones in the right kidney. Emergency Department Course and Treatment: Patient with right lower quadrant abdominal pain clinically I think this may be a kidney stone appendicitis is definitely in the differential but she is really not reproducibly tender. T reated with morphine and Zofran. IV fluids. I did choose to do a CT with IV contrast due to her being thin and the potential is being appendicitis even though I clinically think is more likely a stone. Treatment Plan: Repeat exam at 1147 and 1238 patient is doing well. Abdomen is benign. Her pain is almost resolved with the medications and she does not want anything currently now for pain or nausea. Brandon for pain. Strain urine. Follow-up as needed. Disposition: Discharge Impression: Acute right lower quadrant abdominal pain secondary to acute right UVJ 3 mm ureteral stone This note was generated with [employer] dictation software. It may contain incorrect words, spelling, and punctuation that were not noted in review of the chart prior to signing ED Disposition - Plan for ED Patient: Referrals: Eleazar Baeza MD [Primary Care Provider] -
[2019-09-22 10:47] LABS: Absolute Lymphocyte Count 0.92 X10^3/uL (0.83-4.51); Absolute Neutrophil Count 8.2 X10^3/uL (2.0-7.7); Basophil# 0.05 X10^3/uL; Basophil% 0.5 % (0-1); Eosinophil# 0.02 X10^3/uL; Eosinophils% 0.2 % (0-5); Hematocrit 38.5 % (37-47); Hemoglobin 12.7 g/dL (12.0-15.0); Lymphocyte # 0.92 X10^3/ul (4.0); Lymphocyte % 9.7 % (19-41); Mean Corpuscular Hgb 31.8 pg (27.0-32.0); Mean Corpuscular Volume 96.5 fL (81-99); Mean Platelet Vol. 10.3 fl (6.2-12.0); Monocyte# 0.32 X10^3/uL; Monocyte% 3.4 % (0-10); NRBC Flagged by Analyzer 0 % (0-5); Neutrophil # 8.16 X10^3/uL (2.7-7.7); Neutrophil % 85.9 % (47-70); Platelet Count 275 K/mm3 (150-450); RBC Distribution Width CV 13.2 % (11.6-14.6); RBC Distribution Width SD 46.9 fl (35.1-43.9); Red Blood Count 3.99 M/mm3 (4.2-5.4); White Blood Count 9.5 K/mm3 (4.4-11.0)
[2019-09-22] MEDS: Ondansetron 4 MG/2 ML Vial IV (10:48)
[2019-09-22] MEDS: 0.9% Normal Saline 1,000 ML 1000 ML IV (10:48)
[2019-09-22] MEDS: morphine 8 MG/ML Syringe 6 MG IV (10:48)
[2019-09-22 10:59] LABS: AST(SGOT) 17 U/L (15-37); Alanine Aminotransfer ALT/SGPT 20 U/L (13-56); Albumin, Serum 3.7 g/dL (3.2-5.0); Alkaline Phosphatase 99 U/L (45-117); Anion Gap 7 (5-15); BUN 19 mg/dL (7-18); BUN/Creat Ratio 21.5 RATIO (10-20); Bilirubin, Direct 0.08 mg/dL (0.00-0.30); Calcium,Total 9.2 mg/dL (8.5-10.1); Chloride 108 mmol/L (98-107); Creatinine, Serum 0.88 mg/dL (0.55-1.02); EST Glomerular Filtration Rate 68 mL/min (>60); Est Glom Filt Rate - Afr Amer 82 mL/min (>60); Estimated Creatinine Clearance 53.57 ml/min; Glucose 184 mg/dL (74-106); Potassium 3.6 mmol/L (3.5-5.1); Protein, Total 7.7 g/dL (6.4-8.2); Sodium Level 141 mmol/L (136-145)
[2019-09-22 11:41] LABS: Bacteria 0 SEEN /hpf (None Seen); Color, Urine Yellow (Yellow); Glucose, Dipstick Normal (Normal); Ketone-Dipstick 15 mg/dl (Negative); Leukocyte Esterase-Dipstick Negative /ul (Negative); Mucous, Urine 0 SEEN /hpf (<or=2+); Nitrite-Dipstick Negative (Negative); Occult Blood-Urine 10 /ul (Negative); Protein-Dipstick Negative (Negative); Urine Bilirubin Dipstick Negative (Negative); Urine Clarity Clear (Clear); Urine Urobilinogen Normal (Normal); White Blood Cells 0 SEEN /hpf (0-5)
[2019-09-22 11:48] LABS: Red Blood Cells-Urine 0-5 SEEN /hpf (0-5); Squamous Epithelial Cells - UA 0-5 SEEN /hpf (5-10)
--- NOTE | 2019-09-22 12:42 | DCINST.ED_ITS ---
ED Disposition - Plan for ED Patient: Disposition: Home or Assisted Living Instructions: KIDNEY STONE w/ [place] Prescriptions: Hydrocodone/Acetaminophen [[place] 5-325 Tablet] 1 ea PO 4X/DAY PRN PRN #14 tab PRN Reason: kidney stone Prescription Printed Referrals: Eleazar Baeza MD [Primary Care Provider] - As Needed Additional Instructions: You have a 3 mm kidney stone on the right. That should pass. [place] for pain 1-2 every 4 hours as needed. And Motrin up to 2 twice a day. Plenty of fluids and rest. Follow-up as needed.
[2019-09-22 12:56] VITALS: BP 124/77; PULSE 62; RESP 15; O2SAT 98
== END 2019-09-22 12:59 | disposition home or self-care (01) ==
PROVIDERS: Emergency Provider Emergency Medicine; Family Provider Family Medicine; PCP Family Medicine
DX: N13.2 Hydronephrosis with renal and ureteral calculous obstruction (principal); R10.31 Right lower quadrant pain; E03.9 Hypothyroidism, unspecified; Z79.899 Other long term (current) drug therapy
CPT/HCPCS: 74177; 80048; 80076; 81001; 85025; 96361; 96374; 96375; 99284; J7030; Q9967; A4216; J2405

== ENCOUNTER → 2019-09-27 12:43 | Outpatient (CLI) | payer MEDICARE, OTHER, SELFPAY ==
[2019-09-22 09:56] VITALS: BMI 21.5
--- NOTE | 2019-09-27 12:46 | US_ITS ---
STUDY: RENAL ULTRASOUND - COMPLETE REASON FOR EXAM: Female, 69 years old. Hydronephrosis. TECHNIQUE: Ultrasound evaluation of the kidneys was performed with real-time and static allan-scale imaging. COMPARISON: Comparison is made with prior CT scan of the abdomen and pelvis dated September 22, 2019. FINDINGS: RIGHT KIDNEY: Normal location of the right kidney, which is normal in size. The right kidney measures 12.9 cm x 5.5 cm x 5.0 cm. There is a normal cortex of the right kidney. The renal cortex measures 1.7 cm. There is no right renal mass or cyst. There are no right renal calculi. There is [id number] hydronephrosis of the right kidney. DISTAL RIGHT URETER: There is non-visualization of the distal right ureter. There is no demonstrated right ureterovesical junction calculus. There is a visualized right ureteral jet. LEFT KIDNEY: Normal location of the left kidney, which is normal in size. The left kidney measures 11.9 cm x 4.5 cm x 5.1 cm. There is a normal cortex of the left kidney. The renal cortex measures 1.7 cm. There is no left renal mass or cyst. There are no left renal calculi. There is mild hydronephrosis of the left kidney. DISTAL LEFT URETER: There is non-visualization of the distal left ureter. There is no demonstrated left ureterovesical junction calculus. There is a visualized left ureteral jet. BLADDER: The distended urinary bladder has a volume of 342 ml. There is a normal wall thickness of the distended urinary bladder. There is no demonstrated mass within the urinary bladder. There are no demonstrated bladder calculi. US/Kidney and Bladder IMPRESSION: Bilateral hydronephrosis more prominent on the right side. Electronically Signed: Anton Love, at 14:36 EST , Service support ,
== END ==
PROVIDERS: Family Provider Family Medicine; PCP Family Medicine; Referring Provider Family Medicine; Visit Provider Family Medicine
DX: N13.30 Unspecified hydronephrosis (principal)
CPT/HCPCS: 76770

== ENCOUNTER → 2019-09-30 15:07 | Outpatient (CLI) | payer MEDICARE, OTHER, SELFPAY ==
[2019-09-22 09:56] VITALS: BMI 21.5
[2019-10-08 16:33] LABS: Ca Oxalate, Monohydrate 60 % (.); Calcium Phosphate 40 % (.); Size 4x3x2 mm (.)
== END ==
PROVIDERS: Family Provider Family Medicine; PCP Family Medicine; Referring Provider Nurse Practitioner Adult Health; Visit Provider Nurse Practitioner Adult Health
DX: N20.0 Calculus of kidney (principal)
CPT/HCPCS: 82360

== ENCOUNTER → 2019-11-05 07:51 | Outpatient (CLI) | payer MEDICARE, OTHER, SELFPAY ==
--- NOTE | 2019-11-05 07:52 | BI_ITS ---
MAMMOGRAPHY - BILATERAL SCREENING REASON FOR EXAM: Female, 69 years old. Routine annual screening examination. PERTINENT HISTORY: Sister with breast cancer. Mother with breast cancer. TECHNIQUE: Digital bilateral breast kirti (3D mammographic acquisition) in the CC and MLO projections. 2-D mediolateral oblique (MLO) and craniocaudad (CC) views of both breasts were obtained. CAD: Full Field Digital Mammography with Computer Added Detection was performed. COMPARISON: Comparison is made with prior examination dated October 12, 2018 and September 16, 2017. FINDINGS: Breast Composition: There are scattered areas of fibroglandular density. There are no dominant masses or suspicious calcifications. No other significant abnormalities are identified. There has been no significant change since the prior study. BI/SCREEN MAMM (CAD) W/KIRTI BILAT IMPRESSION: Stable bilateral screening mammogram. Yearly follow-up mammogram recommended. (A) ASSESSMENT CATEGORY: BIRADS Category 1: Negative. A letter regarding these results will be sent to the patient by the facility within 30 days. Approximately 10% of breast cancers are not detected by mammography. A normal mammogram should not delay biopsy of a clinically suspicious abnormality. [id number] Electronically Signed: Anton Love, at 10:26 EST , Service support ,
== END ==
PROVIDERS: Family Provider Family Medicine; PCP Family Medicine; Referring Provider Family Medicine; Visit Provider Family Medicine
DX: Z12.31 Encounter for screening mammogram for malignant neoplasm of breast (principal)
CPT/HCPCS: 77063; 77067

== ENCOUNTER → 2020-11-14 09:40 | Outpatient (CLI) | payer MEDICARE, OTHER, SELFPAY ==
[2020-05-25 13:43] VITALS: BMI 20.4
--- NOTE | 2020-11-14 09:41 | BI_ITS ---
MAMMOGRAPHY - BILATERAL SCREENING REASON FOR EXAM: Female, 70 years old. Routine annual screening examination. PERTINENT HISTORY: FAM HX OF MOTHER @ AGE 84 Tamp; SISTER @ AGE 47 - NO PREV BREAST SURG''S - HX OF RT MOLE REMOVAL TECHNIQUE: Digital bilateral breast kirti (3D mammographic acquisition) in the CC and MLO projections. 2-D mediolateral oblique (MLO) and craniocaudad (CC) views of both breasts were obtained. CAD: Full Field Digital Mammography with Computer Added Detection was performed. COMPARISON: 11/05/2019, 10/12/2018. FINDINGS: Breast Composition: There are scattered areas of fibroglandular density. There are no dominant masses or suspicious calcifications. No other significant abnormalities are identified. BI/SCREEN MAMM (CAD) W/KIRTI BILAT IMPRESSION: Stable bilateral screening mammogram. Yearly follow-up mammogram recommended. (A) ASSESSMENT CATEGORY: BIRADS Category 2: Benign. A letter regarding these results will be sent to the patient by the facility within 30 days. Approximately 10% of breast cancers are not detected by mammography. A normal mammogram should not delay biopsy of a clinically suspicious abnormality. [id number] Electronically Signed: Michael Wong, at 15:46 EST Tel , Service support ,
--- NOTE | 2020-11-14 09:46 | BD_ITS ---
STUDY: DUAL ENERGY X-RAY ABSORPTIOMETRY / DXA REASON FOR EXAM: Female, 70 years old. 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 COMPARISON: Comparison is made with prior study dated 11/12/2018. FINDINGS: Lumbar Spine (L1-L4): g/cm2 (1.055) / T-score (-1.2) / Z-score (0.4) Findings are suggestive of osteopenia with a low fracture risk. Left Femur Total: g/cm2 (0.761) / T-score (-2.0) / Z-score (-0.6) Left Femoral Neck: g/cm2 (0.74) / T-score (-1.8) / Z-score (-0.2) Right Femur Total: g/cm2 (0.725) / T-score (-2.2) / Z-score (-0.9) Right Femoral Neck: g/cm2 (0.772) / T-score (-1.9) / Z-score (-0.3) The T-Scores on the most recent prior examination were: Lumbar Spine (L1-L4): There has been improvement of bone density since the previous examination. Left Femur Total: which represents a worsening of 0.3%. Right Femur Total: which represents a worsening of 2.4%. BD/Dexa Bone Density Study IMPRESSION: The patient is considered osteopenic as outlined below according to World Richard Organization (WHO) criteria with a high fracture risk. There has been worsening of bone density since the previous examination. Reference Information: The T-score is the number of standard deviations above or below the standard which is normal for young adults at their peak bone mineral density. The World Health Organization (WHO) interprets the T-scores as follows: Above -1 Normal bone density Between -1 and -2.5 Osteopenia Equal to / or below -2.5 Osteoporosis As a practical clinical guideline, osteopenia may be graded as follows: Mild -1 through -1.5 Moderate -1.6 through -2.0 Severe -2.1 through -2.4 The Z-score is the number of standard deviations above or below age-matched controls. A Z-score of less than -1.5 would be considered abnormal. References: 1. NIH Osteoporosis and Related Bone Diseases www osteo.org 2. International Society for Clinical Densitometry www iscd.org 3. National Osteoporosis Foundation www nof.org Electronically Signed: Anton Love, at 10:15 EST , Service support ,
== END ==
PROVIDERS: PCP Family Medicine; Referring Provider Obstetrics & Gynecology; Visit Provider Obstetrics & Gynecology
DX: Z12.31 Encounter for screening mammogram for malignant neoplasm of breast (principal); Z78.0 Asymptomatic menopausal state
CPT/HCPCS: 77063; 77067; 77080

== ENCOUNTER → 2020-11-27 09:11 | Outpatient (CLI) | payer MEDICARE, OTHER, SELFPAY ==
[2020-05-25 13:43] VITALS: BMI 20.4
[2020-11-27 10:05] LABS: Absolute Lymphocyte Count 1.11 X10^3/uL (0.83-4.51); Absolute Neutrophil Count 2.5 X10^3/uL (2.0-7.7); Basophil# 0.06 X10^3/uL; Basophil% 1.5 % (0-1); Eosinophil# 0.09 X10^3/uL; Eosinophils% 2.2 % (0-5); Hematocrit 41.2 % (37-47); Hemoglobin 13.4 g/dL (12.0-15.0); Lymphocyte # 1.11 X10^3/ul (4.0); Mean Corp Hgb Conc 32.5 g/dL (32-36); Mean Corpuscular Hgb 31.7 pg (27.0-32.0); Mean Corpuscular Volume 97.4 fL (81-99); Mean Platelet Vol. 10.3 fl (6.2-12.0); Monocyte# 0.37 X10^3/uL; NRBC Flagged by Analyzer 0 % (0-5); Neutrophil # 2.47 X10^3/uL (2.7-7.7); Neutrophil % 60.1 % (47-70); Platelet Count 236 K/mm3 (150-450); RBC Distribution Width CV 12.8 % (11.6-14.6); RBC Distribution Width SD 45.8 fl (35.1-43.9); Red Blood Count 4.23 M/mm3 (4.2-5.4); White Blood Count 4.1 K/mm3 (4.4-11.0)
[2020-11-27 10:34] LABS: PTHIN 62.4 pg/mL (18.4-80.1)
[2020-11-27 10:39] LABS: Vitamin D,25 Hydroxy 34.3 ng/mL
[2020-11-27 10:52] LABS: AST(SGOT) 21 U/L (15-37); Alanine Aminotransfer ALT/SGPT 25 U/L (13-56); Albumin, Serum 3.7 g/dL (3.2-5.0); Alkaline Phosphatase 111 U/L (45-117); Anion Gap 5 (5-15); BUN 18 mg/dL (7-18); BUN/Creat Ratio 29.2 RATIO (10-20); Calcium,Total 8.9 mg/dL (8.5-10.1); Chloride 110 mmol/L (98-107); Creatinine, Serum 0.62 mg/dL (0.55-1.02); EST Glomerular Filtration Rate 102 mL/min (>60); Est Glom Filt Rate - Afr Amer 124 mL/min (>60); Free T3 2.3 pg/mL (2.18-3.98); Globulin 3.8 g/dL (2.2-4.2); Glucose 95 mg/dL (74-106); Protein, Total 7.5 g/dL (6.4-8.2); Sodium Level 142 mmol/L (136-145); Thyroid Stim Hormone (TSH) 2.35 uIU/mL (0.358-3.74)
== END ==
PROVIDERS: PCP Family Medicine; Referring Provider Family Medicine; Visit Provider Family Medicine
DX: L71.8 Other rosacea (principal); R79.89 Other specified abnormal findings of blood chemistry; M85.80 Other specified disorders of bone density and structure, unspecified site; E03.9 Hypothyroidism, unspecified
CPT/HCPCS: 36415; 80053; 82306; 83970; 84443; 84481; 85025

== ENCOUNTER → 2020-12-28 10:21 | Outpatient (CLI) | payer MEDICARE, OTHER, SELFPAY ==
[2020-05-25 13:43] VITALS: BMI 20.4
--- NOTE | 2020-12-28 10:31 | CT_ITS ---
STUDY: CT ABDOMEN AND PELVIS WITH CONTRAST REASON FOR EXAM: Female, 70 years old. RLQ/BACK PAIN, MILD BOWEL CHANGES RADIATION DOSAGE (If Supplied By Facility): CTDIvol = ( 8.88 ) mGy, DLP = ( 362.85 ) mGycm TECHNIQUE: Transaxial images were obtained from the dome of the diaphragm to the symphysis pubis without oral contrast. Oral and amp; IV Gastrografin and amp; 100mL Isovue-300 was administered. Sagittal and coronal images were reconstructed. Individualized dose optimization techniques were used for this CT. COMPARISON: None. FINDINGS: The visualized lung bases are unremarkable. The visualized portions of the heart are within normal limits. Normal liver. Normal gallbladder and extrahepatic biliary system. Normal spleen. Normal pancreas. Normal bilateral adrenal glands. There are 2 stones in the right kidney measuring 4 mm and 2 mm respectively. There is mild right hydronephrosis and hydroureter due to 2 mm stone in the distal end of the right ureter at the UVJ. Normal left kidney. Normal visualized stomach. Normal small intestine. Normal colon. The appendix is visualized and appears normal. Normal abdominal aorta. Normal inferior vena cava. Normal retroperitoneum. Normal urinary bladder. Normal abdominal wall. Normal osseous structures. CT/Abdomen/Pelvis WITH Contrast IMPRESSION: There are 2 stones in the right kidney measuring 4 mm and 2 mm respectively. There is mild right hydronephrosis and hydroureter due to 2 mm stone in the distal end of the right ureter at the UVJ. Electronically Signed: Michael Wong MD at 14:00 EST Tel , Service support ,
[2020-12-28 11:08] LABS: Absolute Lymphocyte Count 0.93 X10^3/uL (0.83-4.51); Absolute Neutrophil Count 3.8 X10^3/uL (2.0-7.7); Basophil# 0.04 X10^3/uL; Basophil% 0.8 % (0-1); Eosinophil# 0.05 X10^3/uL; Hematocrit 40.8 % (37-47); Hemoglobin 13.2 g/dL (12.0-15.0); Lymphocyte # 0.93 X10^3/ul (4.0); Lymphocyte % 17.7 % (19-41); Mean Corp Hgb Conc 32.4 g/dL (32-36); Mean Corpuscular Hgb 31.5 pg (27.0-32.0); Mean Corpuscular Volume 97.4 fL (81-99); Mean Platelet Vol. 9.8 fl (6.2-12.0); Monocyte# 0.45 X10^3/uL; Monocyte% 8.6 % (0-10); NRBC Flagged by Analyzer 0 % (0-5); Neutrophil # 3.77 X10^3/uL (2.7-7.7); Neutrophil % 71.7 % (47-70); Platelet Count 285 K/mm3 (150-450); RBC Distribution Width CV 12.9 % (11.6-14.6); RBC Distribution Width SD 46.2 fl (35.1-43.9); Red Blood Count 4.19 M/mm3 (4.2-5.4); White Blood Count 5.3 K/mm3 (4.4-11.0)
[2020-12-28 11:43] LABS: ALB/GLOB Ratio 1.1 RATIO (0.9-2.4); AST(SGOT) 16 U/L (15-37); Alanine Aminotransfer ALT/SGPT 20 U/L (13-56); Albumin, Serum 3.9 g/dL (3.2-5.0); Alkaline Phosphatase 110 U/L (45-117); Anion Gap 1 (5-15); BUN 13 mg/dL (7-18); BUN/Creat Ratio 19.6 RATIO (10-20); CRP < 2.90 mg/L (0.0-3.0); Calcium,Total 9.3 mg/dL (8.5-10.1); Chloride 111 mmol/L (98-107); Creatinine, Serum 0.66 mg/dL (0.55-1.02); EST Glomerular Filtration Rate 94 mL/min (>60); Est Glom Filt Rate - Afr Amer 114 mL/min (>60); Globulin 3.7 g/dL (2.2-4.2); Glucose 106 mg/dL (74-106); Potassium 4.1 mmol/L (3.5-5.1); Protein, Total 7.6 g/dL (6.4-8.2); Sodium Level 142 mmol/L (136-145)
== END ==
PROVIDERS: PCP Family Medicine; Referring Provider Family Medicine; Visit Provider Family Medicine
DX: R10.31 Right lower quadrant pain (principal)
CPT/HCPCS: 36415; 74177; 80053; 85025; 86140; Q9967

== ENCOUNTER → 2021-11-08 | Outpatient (CLI) | payer MEDICARE, OTHER, SELFPAY | END | disposition home or self-care (01) | LOC: LABSPEC 11-12 07:17 | PROVIDERS: PCP Family Medicine; Referring Provider Family Medicine; Visit Provider Family Medicine | DX: Z20.822 Contact with and (suspected) exposure to COVID-19 (principal) | CPT/HCPCS: 87635; U0005; U0003 ==

== ENCOUNTER → 2021-11-15 12:53 | Outpatient (CLI) | payer MEDICARE, OTHER, SELFPAY ==
[2021-11-15 13:50] VITALS: BP 163/60; PULSE 65; RESP 16; TEMP 36.4; O2SAT 100; BMI 20.6
[2021-11-15] MEDS: 0.9% NaCl Peripheral Flush Adult/Peds IV (13:53)
[2021-11-15] MEDS: Zoledronic Acid 5 MG 100 ML 300 MG IV (13:54)
[2021-11-15] MEDS: 0.9% NaCl IVPB Med Flush (250 mL) 15 ML IV (13:54)
== END ==
PROVIDERS: PCP Family Medicine; Referring Provider Internal Medicine Endocrinology, Diabetes & Metabolism; Visit Provider Internal Medicine Endocrinology, Diabetes & Metabolism
DX: M85.80 Other specified disorders of bone density and structure, unspecified site (principal)
CPT/HCPCS: 96365; J7050; A4216; J3489

== ENCOUNTER 2021-11-19 09:48 | Outpatient (CLI) | payer MEDICARE, OTHER, SELFPAY ==
[2020-05-25 13:43] VITALS: BMI 20.4
--- NOTE | 2021-11-19 09:51 | BI_ITS ---
MAMMOGRAPHY - BILATERAL SCREENING REASON FOR EXAM: Female, 71 years old. Routine annual screening examination. PERTINENT HISTORY: Sister with breast cancer. Mother with breast cancer. TECHNIQUE: Digital bilateral breast kirti (3D mammographic acquisition) in the CC and MLO projections. 2-D mediolateral oblique (MLO) and craniocaudad (CC) views of both breasts were obtained. CAD: Full Field Digital Mammography with Computer Added Detection was performed. COMPARISON: Comparison is made with prior study dated 11/14/2020 and 11/05/2019. FINDINGS: Breast Composition: There are scattered areas of fibroglandular density. There are no dominant masses or suspicious calcifications. No other significant abnormalities are identified. There has been no significant change since the prior study. BI/SCRN MAMM (CAD)W/KIRTI BILAT IMPRESSION: Stable bilateral screening mammogram. Yearly follow-up mammogram recommended. (A) ASSESSMENT CATEGORY: BIRADS Category 1: Negative. A letter regarding these results will be sent to the patient by the facility within 30 days. Approximately 10% of breast cancers are not detected by mammography. A normal mammogram should not delay biopsy of a clinically suspicious abnormality. [id number] Electronically Signed: Anton Love MD at 11:06 EST , Service support ,
== END 2021-11-19 23:59 | disposition short-term general hospital (02) ==
LOC: OPBI 09:49
PROVIDERS: PCP Family Medicine; Referring Provider Obstetrics & Gynecology; Visit Provider Obstetrics & Gynecology
DX: Z12.31 Encounter for screening mammogram for malignant neoplasm of breast (principal)
CPT/HCPCS: 77063; 77067

== ENCOUNTER 2021-11-29 15:17 | Outpatient (CLI) | payer MEDICARE, OTHER, SELFPAY ==
[2021-11-29 17:56] LABS: Vitamin D,25 Hydroxy 40.9 ng/mL
[2021-11-29 18:20] LABS: AST(SGOT) 18 U/L (15-37); Alanine Aminotransfer ALT/SGPT 36 U/L (13-56); Albumin, Serum 3.6 g/dL (3.2-5.0); Alkaline Phosphatase 119 U/L (45-117); Anion Gap 6 (5-15); BUN 20 mg/dL (7-18); Calcium,Total 8.7 mg/dL (8.5-10.1); Chloride 107 mmol/L (98-107); Creatinine, Serum 0.61 mg/dL (0.55-1.02); EST Glomerular Filtration Rate 104 mL/min (>60); Est Glom Filt Rate - Afr Amer 126 mL/min (>60); Free T3 2.1 pg/mL (2.18-3.98); Globulin 3.6 g/dL (2.2-4.2); Glucose 91 mg/dL (74-106); Potassium 3.9 mmol/L (3.5-5.1); Protein, Total 7.2 g/dL (6.4-8.2); Sodium Level 142 mmol/L (136-145); T4 Free Direct 1.13 ng/dL (0.76-1.46); Thyroid Stim Hormone (TSH) 2.58 uIU/mL (0.358-3.74)
[2021-11-30 10:33] LABS: Microalbumin,Random Urine 8.5 mg/L (NO RANGE EST.); Microalbumin:Creatinine Ratio 30.4 mg/g CRE (<30 mg/g CRE)
== END 2021-11-29 23:59 | disposition short-term general hospital (02) ==
LOC: MFPLAB 15:19
PROVIDERS: PCP Family Medicine; Referring Provider Family Medicine; Visit Provider Family Medicine
DX: Z00.00 Encounter for general adult medical examination without abnormal findings (principal); M85.80 Other specified disorders of bone density and structure, unspecified site; E03.9 Hypothyroidism, unspecified; I10 Essential (primary) hypertension
CPT/HCPCS: 36415; 80053; 82043; 82306; 82570; 84439; 84443; 84481

== ENCOUNTER 2022-11-14 09:03 | Outpatient (CLI) | payer MEDICARE, OTHER, SELFPAY ==
[2022-11-14 10:06] LABS: NATERA MAILED SPECIMEN
== END 2022-11-14 23:59 | disposition home or self-care (01) ==
LOC: LAB 09:05
PROVIDERS: PCP Family Medicine; Visit Provider Obstetrics & Gynecology
DX: Z00.00 Encounter for general adult medical examination without abnormal findings (principal)
CPT/HCPCS: 36415

== ENCOUNTER → 2022-11-21 | Outpatient (CLI) | payer MEDICARE, OTHER, SELFPAY ==
--- NOTE | 2022-11-21 09:53 | BI_ITS ---
MAMMOGRAPHY - BILATERAL SCREENING REASON FOR EXAM: Female, 72 years old. Routine annual screening examination. PERTINENT HISTORY: Sister with breast cancer. Mother with breast cancer. TECHNIQUE: Digital bilateral breast kirti (3D mammographic acquisition) in the CC and MLO projections. 2-D mediolateral oblique (MLO) and craniocaudad (CC) views of both breasts were obtained. CAD: Full Field Digital Mammography with Computer Added Detection was performed. COMPARISON: Comparison is made with prior study dated 11/19/2021 and 11/14/2020. FINDINGS: Breast Composition: There are scattered areas of fibroglandular density. There are no dominant masses or suspicious calcifications. No other significant abnormalities are identified. There has been no significant change since the prior study. BI/SCRN MAMM (CAD)W/KIRTI BILAT IMPRESSION: Stable bilateral screening mammogram. Yearly follow-up mammogram recommended. (A) ASSESSMENT CATEGORY: BIRADS Category 1: Negative. A letter regarding these results will be sent to the patient by the facility within 30 days. Approximately 10% of breast cancers are not detected by mammography. A normal mammogram should not delay biopsy of a clinically suspicious abnormality. [id number] Electronically Signed: Anton Love MD at 11:03 EST ,
== END | disposition home or self-care (01) ==
LOC: OPBI 09:51
PROVIDERS: PCP Family Medicine; Visit Provider Obstetrics & Gynecology
DX: Z12.31 Encounter for screening mammogram for malignant neoplasm of breast (principal); Z80.3 Family history of malignant neoplasm of breast
CPT/HCPCS: 77063; 77067

== ENCOUNTER → 2022-11-26 | Outpatient (CLI) | payer MEDICARE, OTHER, SELFPAY ==
[2022-11-26 16:59] LABS: Anion Gap 7 (5-15); BUN 20 mg/dL (7-18); BUN/Creat Ratio 33.7 RATIO (10-20); Calcium,Total 8.6 mg/dL (8.5-10.1); Chloride 108 mmol/L (98-107); Creatinine, Serum 0.59 mg/dL (0.55-1.02); EST Glomerular Filtration Rate 106 mL/min (>60); Est Glom Filt Rate - Afr Amer 129 mL/min (>60); Glucose 108 mg/dL (74-106); Potassium 3.7 mmol/L (3.5-5.1); Sodium Level 142 mmol/L (136-145)
[2022-11-26 17:02] LABS: Vitamin D,25 Hydroxy 40.1 ng/mL
== END | disposition home or self-care (01) ==
LOC: LAB 14:00
PROVIDERS: PCP Family Medicine; Visit Provider Family Medicine
DX: M85.80 Other specified disorders of bone density and structure, unspecified site (principal)
CPT/HCPCS: 36415; 80048; 82306

== ENCOUNTER → 2022-11-28 | Outpatient (CLI) | payer MEDICARE, OTHER, SELFPAY ==
--- NOTE | 2022-11-28 09:02 | BD_ITS ---
STUDY: DUAL ENERGY X-RAY ABSORPTIOMETRY / DXA REASON FOR EXAM: Female, 72 years old. 733.90OsteopeniaBONE DENSITY REASON FOR EXAM TECHNIQUE: Bone Mineral Density (BMD) measurements of lumbar spine and bilateral hips were obtained. COMPARISON: Comparison is made with prior study dated 11/14/2020. FINDINGS: Lumbar Spine (L1-L4): g/cm2 (0.945) / T-score (-0.9) / Z-score (1.2) Findings are suggestive of normal bone density with a low fracture risk. Left Femur Total: g/cm2 (0.717) / T-score (-1.8) / Z-score (-0.3) Left Femoral Neck: g/cm2 (0.633) / T-score (-1.9) / Z-score (-0.1) Right Femur Total: g/cm2 (0.706) / T-score (-1.9) / Z-score (-0.4) Right Femoral Neck: g/cm2 (0.596) / T-score (-2.3) / Z-score (-0.4) The T-Scores on the most recent prior examination were: Lumbar Spine (L1-L4): There has been improvement of bone density since the previous examination. Left Femur Total: which represents an improvement of 2.1%. Right Femur Total: which represents an improvement of 5.8%. BD/Dexa Bone Density Study IMPRESSION: The patient is considered osteopenic as outlined below according to World Richard Organization (WHO) criteria with a high fracture risk. There has been improvement of bone density since the previous examination. Reference Information: The T-score is the number of standard deviations above or below the standard which is normal for young adults at their peak bone mineral density. The World Health Organization (WHO) interprets the T-scores as follows: Above -1 Normal bone density Between -1 and -2.5 Osteopenia Equal to / or below -2.5 Osteoporosis As a practical clinical guideline, osteopenia may be graded as follows: Mild -1 through -1.5 Moderate -1.6 through -2.0 Severe -2.1 through -2.4 The Z-score is the number of standard deviations above or below age-matched controls. A Z-score of less than -1.5 would be considered abnormal. References: 1. NIH Osteoporosis and Related Bone Diseases www osteo.org 2. International Society for Clinical Densitometry www iscd.org 3. National Osteoporosis Foundation www nof.org Electronically Signed: Anton Love MD at 14:24 EST ,
== END | disposition home or self-care (01) ==
LOC: OPBD 08:54
PROVIDERS: PCP Family Medicine; Referring Provider Family Medicine; Visit Provider Family Medicine
DX: M85.89 Other specified disorders of bone density and structure, multiple sites (principal)
CPT/HCPCS: 77080

== ENCOUNTER → 2023-05-27 | Outpatient (CLI) | payer MEDICARE, OTHER, SELFPAY ==
[2023-05-27 10:54] LABS: Vitamin D,25 Hydroxy 56.4 ng/mL
[2023-05-27 11:08] LABS: ALB/GLOB Ratio 0.9 RATIO (0.9-2.4); AST(SGOT) 19 U/L (15-37); Alanine Aminotransfer ALT/SGPT 21 U/L (13-56); Albumin, Serum 3.4 g/dL (3.2-5.0); Alkaline Phosphatase 80 U/L (45-117); Anion Gap 4 (5-15); BUN 19 mg/dL (7-18); BUN/Creat Ratio 31.8 RATIO (10-20); Calcium,Total 8.5 mg/dL (8.5-10.1); Chloride 109 mmol/L (98-107); Cholesterol 226 mg/dL (200); EST Glomerular Filtration Rate 105 mL/min (>60); Est Glom Filt Rate - Afr Amer 127 mL/min (>60); Free T3 2.2 pg/mL (2.18-3.98); Globulin 3.8 g/dL (2.2-4.2); Glucose 87 mg/dL (74-106); High Density Lipoprotein 95 mg/dL; Potassium 4.1 mmol/L (3.5-5.1); Protein, Total 7.2 g/dL (6.4-8.2); Sodium Level 139 mmol/L (136-145); T4 Free Direct 1.07 ng/dL (0.76-1.46); Thyroid Stim Hormone (TSH) 1.83 uIU/mL (0.358-3.74); Triglycerides 62 mg/dL; Very Low Density Lipoprotein 12 mg/dL (5-40)
[2023-05-27 16:53] LABS: Microalbumin,Random Urine 9.7 mg/L (NO RANGE EST.); Microalbumin:Creatinine Ratio 15.1 mg/g CRE (<30 mg/g CRE)
== END | disposition home or self-care (01) ==
LOC: MTLAB 08:24
PROVIDERS: PCP Family Medicine; Referring Provider Family Medicine; Visit Provider Family Medicine
DX: Z00.00 Encounter for general adult medical examination without abnormal findings (principal); E03.9 Hypothyroidism, unspecified; M85.80 Other specified disorders of bone density and structure, unspecified site
CPT/HCPCS: 36415; 80053; 80061; 82043; 82306; 82570; 84439; 84443; 84481

== ENCOUNTER → 2023-06-13 | Outpatient (CLI) | payer MEDICARE, OTHER, SELFPAY ==
--- NOTE | 2023-06-13 12:47 | CDU_ITS ---
Reason For Study: Left carotid bruit Rt. Velocities/BP Lt. Velocities/BP Prox CCA 67.4/15.4 cm/sec. Prox CCA 72.1/17.3 cm/sec. Mid CCA 51.3/15.4 cm/sec. Mid CCA 52.2/12.6 cm/sec. Dist CCA 59.8/19.2 cm/sec. Dist CCA 45.6/12.6 cm/sec. Prox ICA 43.7/13.5 cm/sec. Prox ICA 43.7/15.4 cm/sec. Mid ICA 48.5/15.4 cm/sec. Mid ICA 50.4/22 cm/sec. Dist ICA 85.3/31.5 cm/sec. Dist ICA 87.2/28.9 cm/sec. Rt. ICA/CCA = 1.43. Lt. ICA/CCA = 1.67. Prox ECA 63.6/9.7 cm/sec. Prox ECA 44.7/8.8 cm/sec. Rt. Vert. 60.7/11.6 cm/sec. Lt. Vert. 65.2/19 cm/sec. Right Extracranial There is intimal thickening but no significant atherosclerotic plaque noted in the right common carotid artery. There is homogeneous, smooth atherosclerotic plaque noted in the right internal carotid artery. There is intimal thickening but no significant atherosclerotic plaque noted in the right external carotid artery. Antegrade flow is noted in the right vertebral artery. Left Extracranial There is intimal thickening but no significant atherosclerotic plaque noted in the left common carotid artery. There is homogeneous, smooth atherosclerotic plaque noted in the left internal carotid artery. There is intimal thickening but no significant atherosclerotic plaque noted in the left external carotid artery. Antegrade flow is noted in the left vertebral artery. Procedure Carotid Duplex 55221. This is a Carotid Duplex examination using B-mode, color flow and specral Doppler. Exam performed in department. VL/Carotid Duplex Ultrasound Interpretation Summary Mild (<50%) stenosis right extracranial internal carotid. Mild (<50%) stenosis left extracranial internal carotid. Patent and antegrade vertebrals bilaterally. Ordering Physician: Eleazar Baeza Referring Physician: Eleazar Baeza Performed By: Denita Easton RVT
== END | disposition home or self-care (01) ==
LOC: CVS 12:46
PROVIDERS: PCP Family Medicine; Referring Provider Family Medicine; Visit Provider Family Medicine
DX: R09.89 Other specified symptoms and signs involving the circulatory and respiratory systems (principal)
CPT/HCPCS: 93880

== ENCOUNTER 2023-09-05 07:43 | Day surgery (SDC) | payer MEDICARE, OTHER, SELFPAY ==
[2023-09-05] VITALS (7 sets, daily range): BP systolic 104–136; BP diastolic 59–80; PULSE 68–83; RESP 16–18; TEMP 36.2–36.8; O2SAT 98–100; BMI 25.4
--- NOTE | 2023-09-05 08:14 | PCM.HP.STD ---
HPI - General General Date of Admission: 08/01/20 Date of Service: 09/05/23 Chief Complaint: Personal history of colon polyps HPI Narrative GRACIE CASTRO, is a 73 F who presents who presents via open access today. July 2018 I did a colonoscopy for showing some anal stricturing and adenoma of the splenic flexure. She has no particular complaints today. [facility] Medical History (Updated 09/05/23 @ 08:[address] Mitul Skinner MD) Alcohol use Back pain DJD (degenerative joint disease) Gastric reflux History of anal fissures Hx of adenomatous polyp of colon Hypertension Hypokalemia Hypothyroidism Kidney stone Non-smoker Ocular rosacea Osteopenia Thyroid disease Wears glasses Home Medications calcium carbonate 500 mg calcium (1,250 mg) tablet 500 mg PO DAILY@0800 04/11/14 [History Last Taken 09/22/19] levothyroxine 50 mcg tablet 50 mcg PO DAILY 09/22/19 [History Last Taken 09/05/23] coenzyme Q10 75 mg capsule (Ultra CoQ10) 100 mg PO DAILY 05/25/20 [History Last Taken Unknown] doxycycline hyclate 20 mg tablet 20 mg PO DAILY 05/25/20 [History Last Taken Unknown] multivitamin 1 tab PO DAILY 05/25/20 [History Last Taken Unknown] fluticasone propionate 50 mcg/actuation nasal spray,suspension 1 spray intranasal DAILY 10/25/21 [History Last Taken Unknown] potassium citrate 5 mEq (540 mg) tablet,extended release 5 meq PO DAILY 10/05/22 [History Last Taken Unknown] conjugated estrogens 0.625 mg/gram vaginal cream (Premarin) 0.625 mg vaginal .COMPLEX #30 grams 06/23/23 [Rx Last Taken Unknown] hydroxyzine pamoate 25 mg capsule 25 mg PO BID PRN nausea and vomiting 06/23/23 [History Last Taken Unknown] psyllium husk 0.52 gram capsule 0.52 g PO DAILY 06/23/23 [History Last Taken Unknown] cholecalciferol (vitamin D3) 25 mcg (1,000 unit) capsule 25 mcg PO DAILY 06/30/23 [History Last Taken Unknown] selenium 200 mcg tablet 200 mcg PO QWEEK 06/30/23 [History Last Taken Unknown] vitamin E 1 applic topical HS PRN skin irritation 06/30/23 [History Last Taken Unknown] zoledronic acid 5 mg/100 mL in mannitol 5 %-water intravenous piggybck (Reclast) 1 ea IV .Annually 06/30/23 [History Last Taken Unknown] metronidazole 0.75 % topical gel 1 applic topical DAILY 09/02/23 [History Last Taken Unknown] Allergy/AdvReac Type Severity Reaction Status Date / Time No Known Allergies Allergy Verified 09/02/23 14:55 Family History Father Cancer Renal Mother Cancer Breast Pancreatic Sister Breast cancer Aunt Uterine cancer Unknown Uterine cancer Surgical History (Updated 09/02/23 @ 15:07 by Yane Sharpe) H/O dilation and curettage History of rotator cuff surgery Hx of bilateral cataract extraction Hx of colonoscopy Hx of rectal sphincterotomy Status post anal fissurectomy Social History Smoking Status: Never smoker alcohol intake: current substance use type: does not use caffeine: Yes what type of physical activity do you participate in: walking frequency: daily seatbelt use: always do you feel safe at home: Yes additional social history: [employer]- Retired Patient is retired ROS Constitutional Constitutional: Reports systems reviewed and no addt'l complaints, except as documented Cardiovascular Cardiovascular: Denies chest pain Respiratory/Chest Respiratory/Chest: Denies shortness of breath at rest Gastrointestinal Gastrointestinal: Denies abdominal pain, change in bowel habits, hematochezia or melena Vital Signs Vital Signs Vital Signs: 09/05/23 08:03 09/05/23 08:03 Temperature 98.3 F Temperature Source Temporal Pulse Rate 83 Respiratory Rate 18 Respiratory Pattern Normal Blood Pressure 126/80 H Blood Pressure Mean 95 Blood Pressure Source Monitor Blood Pressure Position Semi-Fowlers Blood Pressure Location Left Arm Pulse Ox 100 Oxygen Delivery Method Room Air Weight Weight: 130 lb Body Mass Index (BMI) 25.4 Physical Exam Const alert, oriented x3 and no apparent distress General Appearance: cooperative and comfortable Eyes General Eye: normal appearance of both eyes Neck General: normal visual inspection Chest inspection of chest normal Resp Effort and Inspection: able to speak in complete sentences and symmetric chest movement Auscultation: clear to auscultation bilaterally Cardio regular rate and regular rhythm GI soft to palpation, non-tender and non-distended Extremity no calf tenderness Neuro oriented x3 Psych thought process normal Assessment & Plan Assessment/Plan (1) Hx of adenomatous polyp of colon: PLAN: 73-year-old female with a personal history of colon polyp. Plan to proceed with a colonoscopy with possible biopsy or polypectomy as indicated. She presents via open access today. She has had an opportunity to ask and have questions answered. We will proceed as noted. Mitul Skinner M.D., F.A.C.S.
--- NOTE | 2023-09-05 09:00 | COLBX_PTH ---
PATIENT: GRACIE CASTRO LOC: EN U#:[id number] AGE/SX: 73/F ROOM: RE09/05/[address]: Dr. Mitul Skinner MD : 1950 BED: DIS: 09/05/2023 SPEC #: [id number] RECD: 09/05/23 10:17 STATUS: SARINA RESanjay #: [id number] JUANCARLOS: 09/05/23 09:[address]: Mitul Skinner DEPT: SURGICAL PATHOLOGY RECD BY: Germania Dickerson ENTERED: 09/05/23 11:11 SP TYPE: COLON BX OTHR DR: Dr. Eleazar Baeza MD Tissues: Descending colon Procedures: Surgery Specimen Level IV HEADER OPERATION: Colonoscopy - open access, polypectomy PRE-OP DIAGNOSIS: History of adenomatous polyp of colon TISSUE SUBMITTED: Descending colon polyp with cold snare MICROSCOPIC DIAGNOSIS Descending colon polyp, polypectomy: Fragments of tubular adenoma. Fragments of fecal material. SJ:mac 09/08/2023 MICROSCOPIC DESCRIPTION Slides are reviewed. GROSS DESCRIPTION Received in fixative is one container labeled with the patient's name and designated descending colon polyp. The specimen consists of multiple irregular fragments of light meza soft tissue that in aggregate measure 1.0 x 0.4 x 0.1 cm. The specimen is totally submitted in one cassette. / EUGENE:mac 09/05/2023 TC:1 CPT: 70103
--- NOTE | 2023-09-05 09:21 | OP.COLON_ITS ---
Patient Name: Joy Gomez Procedure Date: 09/05/2023 8:49 AM Date of : 1950 Age: 73 Procedure: Colonoscopy Indications: High risk colon cancer surveillance: Personal history of colonic polyps Providers: Mitul Skinner MD Referring MD: Eleazar Baeza Medicines: See the Anesthesia note for documentation of the administered medications Patient Profile: Last Colonoscopy: July 2018. Complications: No immediate complications. Procedure: Pre-Anesthesia Assessment: - Prior to the procedure, a History and Physical was performed, and patient medications and allergies were reviewed. The patient's tolerance of previous anesthesia was also reviewed. The risks and benefits of the procedure and the sedation options and risks were discussed with the patient. All questions were answered, and informed consent was obtained. Prior Anticoagulants: The patient has taken no anticoagulant or antiplatelet agents. ASA Grade Assessment: II - A patient with mild systemic disease. After reviewing the risks and benefits, the patient was deemed in satisfactory condition to undergo the procedure. After I obtained informed consent, the scope was passed under direct vision. Throughout the procedure, the patient's blood pressure, pulse, and oxygen saturations were monitored continuously. The adult colonoscope was introduced through the anus and advanced to the ileocecal valve. The colonoscopy was performed with moderate difficulty due to a tortuous colon. Successful completion of the procedure was aided by applying abdominal pressure. The patient tolerated the procedure well. The quality of the bowel preparation was good. The ileocecal valve and the appendiceal orifice were photographed. Scope In: 8:55:29 AM Scope Withdrawal Time 0 hours 9 minutes 56 seconds Scope Out: 9:15:58 AM Total Procedure Duration Time 0 hours 20 minutes 29 seconds Findings: The digital rectal exam findings include anal stricture, non-thrombosed internal hemorrhoids and internal hemorrhoids (Grade I). A 5 mm polyp was found in the proximal descending colon. The polyp was sessile. The polyp was removed with a cold snare. Resection and retrieval were complete. A few diverticula were found in the sigmoid colon. Impression: - Anal stricture, non-thrombosed internal hemorrhoids and internal hemorrhoids (Grade I) found on digital rectal exam. - One 5 mm polyp in the proximal descending colon, removed with a cold snare. Resected and retrieved. - Diverticulosis in the sigmoid colon. Recommendation: - Discharge patient to home. - Resume previous diet. - Continue present medications. - Repeat colonoscopy in 5 years for surveillance. - Telephone my office for pathology results in 1 week. Procedure Code(s): --- Professional --- 82668, Colonoscopy, flexible; with removal of tumor(s), polyp(s), or other lesion(s) by snare technique Diagnosis Code(s): --- Professional --- Z86.010, Personal history of colonic polyps K62.4, Stenosis of anus and rectum D12.4, Benign neoplasm of descending colon K64.0, First degree hemorrhoids K57.30, Diverticulosis of large intestine without perforation or abscess without bleeding CPT copyright 2021 [employer]. All rights reserved. The codes documented in this report are preliminary and upon it quality analyst review may be revised to meet current compliance requirements. Mitul Skinner MD 09/05/2023 9:20:29 AM This report has been signed electronically. Number of Addenda: 0 Note Initiated On: 09/05/2023 8:49 AM
--- NOTE | 2023-09-05 09:21 | OP.CCLET_ITS ---
09/05/2023 Eleazar Baeza [address] [place] [address] Re : [facility] Baeza This procedure was performed on Tuesday, September 05, 2023. My impressions and recommendations are as follows: Impressions : - Anal stricture, non-thrombosed internal hemorrhoids and internal hemorrhoids (Grade I) found on digital rectal exam. - One 5 mm polyp in the proximal descending colon, removed with a cold snare. Resected and retrieved. - Diverticulosis in the sigmoid colon. Recommendations : - Discharge patient to home. - Resume previous diet. - Continue present medications. - Repeat colonoscopy in 5 years for surveillance. - Telephone my office for pathology results in 1 week. My findings are described in the full procedure note, which is enclosed. If I can be of further assistance, please feel free to contact me at Doctor phone number(s): Work: . Sincerely, Mitul Skinner MD 09/05/2023 9:20:29 AM This report has been signed electronically.
[2023-09-05] MEDS: Lactated Ringers 1,000 ML 15 ML IV (09:42)
== END 2023-09-05 10:30 | disposition home or self-care (01) ==
LOC: EN 07:43 → AC 07:44
PROVIDERS: PCP Family Medicine; Referring Provider Family Medicine; Visit Provider Surgery
PROC: 0DJD8ZZ Inspection of Lower Intestinal Tract, Via Natural or Artificial Opening Endoscopic (ICD-10-PCS; CPT 45378; principal; 2023-09-05 08:55)
DX: Z86.010 Personal history of colon polyps (principal); K64.0 First degree hemorrhoids; I10 Essential (primary) hypertension; K57.30 Diverticulosis of large intestine without perforation or abscess without bleeding; K63.5 Polyp of colon; E03.9 Hypothyroidism, unspecified; K62.4 Stenosis of anus and rectum
CPT/HCPCS: 45385; 88305; J7120; J2405

== ENCOUNTER → 2023-11-25 | Outpatient (CLI) | payer MEDICARE, OTHER, SELFPAY ==
--- NOTE | 2023-11-25 12:51 | BI_ITS ---
MAMMOGRAPHY - BILATERAL SCREENING REASON FOR EXAM: Female, 73 years old. Routine annual screening examination. PERTINENT HISTORY: Sister with breast cancer. Mother with breast cancer. TECHNIQUE: Digital bilateral breast kirti (3D mammographic acquisition) in the CC and MLO projections. 2-D mediolateral oblique (MLO) and craniocaudad (CC) views of both breasts were obtained. CAD: Full Field Digital Mammography with Computer Added Detection was performed. COMPARISON: Comparison is made with prior study dated May 21, 2023 and November 19, 2021. FINDINGS: Breast Composition: There are scattered areas of fibroglandular density. There are no dominant masses or suspicious calcifications. No other significant abnormalities are identified. There has been no significant change since the prior study. BI/SCRN MAMM (CAD)W/KIRTI BILAT IMPRESSION: Stable bilateral screening mammogram. Yearly follow-up mammogram recommended. (A) ASSESSMENT CATEGORY: BIRADS Category 1: Negative. A letter regarding these results will be sent to the patient by the facility within 30 days. Approximately 10% of breast cancers are not detected by mammography. A normal mammogram should not delay biopsy of a clinically suspicious abnormality. [id number] Electronically Signed: Anton Love MD at 14:09 EST ,
== END | disposition home or self-care (01) ==
LOC: OPBI 12:51
PROVIDERS: PCP Family Medicine; Referring Provider Obstetrics & Gynecology; Visit Provider Obstetrics & Gynecology
DX: Z12.31 Encounter for screening mammogram for malignant neoplasm of breast (principal); Z80.3 Family history of malignant neoplasm of breast
CPT/HCPCS: 77063; 77067

== ENCOUNTER → 2023-12-18 | Outpatient (CLI) | payer MEDICARE, OTHER, SELFPAY ==
--- OUTSIDE RECORDS SUMMARY | 2023-12-18 09:58 | XMS RPT_ITS | CCD ---
Author Name Unknown Address [address] [place] [address] Organization [facility] Care Team Providers Care Lasting Room Machine Operator Name Role Phone Tracey Mccann MD Unavailable [phone] Medications Completed/Discontinued Medications Medication Drug Class(es) Dates Sig (Normalized) Sig (Original) Calcium (2 sources) Phosphate Binder, Calcium Start: 09-08-2017 CALCIUM + D3 600-800 MG-UNIT TABS CALCIUM CARB-CHOLECALCIFER OL [id number] Tracey Mccann MD coenzyme q10 200 mg oral capsule (2 sources) Start: 09-08-2017 COQ10 200 MG CAPS COENZYME Q10 [id number] Tracey Mccann MD esomeprazole 40 mg delayed release oral capsule (2 sources) Proton Pump Inhibitor Start: 09-08-2017 NEXIUM 40 MG CPDR ESOMEPRAZOLE MAGNESIUM [id number] Tracey Mccann MD metroNIDAZOLE 0.0075 mg/mg topical gel (2 sources) Nitroimidazole Antimicrobial Start: 09-08-2017 METRONIDAZOLE 0.75 % GEL METRONIDAZOLE [id number] Tracey Mccann MD MULTIPLE VITAMINS-MINERALS (2 sources) Start: 09-08-2017 MULTIVITAMIN WOMEN 50+ TABS MULTIPLE VITAMINS-MINERALS [id number] Tracey Mccann MD Drug Treatment Unknown - unknown (1 source) No information available. ospemifene 60 mg oral tablet (2 sources) Start: 09-08-2017 take 1 tablet by mouth once daily OSPHENA 60 MG TABS One tablet by mouth daily OSPEMIFENE [id number] Tracey Mccann MD SELENIUM (2 sources) Start: 09-08-2017 OCEANIC SELENIUM 200 MCG TABS SELENIUM [id number] Tracey Mccann MD Vitamin E (2 sources) Start: 09-08-2017 THERATEARS NUTRITION CAPS [id number] OIL-VITAMIN E [id number] Tracey Mccann MD Problems Problem Classification Problem Date Documented Date Episodic/Chronic Menopausal disorders (2 sources) Atrophy of vagina; Translations: [Postmenopausal atrophic vaginitis] Onset: 09-08-2017 09-08-2017 Chronic Unclassified (1 source) Gynecologic examination ; Translations: [Encounter for gynecological examination (general) (routine) with abnormal findings] Onset: 09-08-2017 09-08-2017 Unclassified (1 source) Screening mammography ; Translations: [Encounter for screening mammogram for malignant neoplasm of breast] Onset: 08-22-2017 08-24-2017 Results Test Name Value Interpretation Reference Range Facil ity Vital Signs Date Time Vital Sign Value Performing Clinician Faci lity 09-08-2017 09:51-0400 BMI (Body Mass Index) 21.46 kg/m2 Tracey Mccann MD [facility] 09-08-2017 09:51-0400 Body Temperature 97.4 [degF] Tracey Mccann MD [facility] 09-08-2017 09:51-0400 Body Temperature 97.39 [degF] Tracey Mccann MD [facility] 09-08-2017 09:51-0400 BP Diastolic 68 mm[Hg] Tracey Mccann MD [facility] 09-08-2017 09:51-0400 BP Systolic 137 mm[Hg] Tracey Mccann MD [facility] 09-08-2017 09:51-0400 Height 167.64 cm Tracey Mccann MD [facility] 09-08-2017 09:51-0400 Pulse (Heart Rate) 65 /min Tracey Mccann MD [facility] 09-08-2017 09:51-0400 Respiratory Rate 16 /min Tracey Mccann MD [facility] 09-08-2017 09:51-0400 Weight 60.33 kg Tracey Mccann MD [facility] 09-03-2010 16:27-0400 Body Temperature 97.9 [degF] Tracey Mccann MD [facility] Procedures Date Procedure Procedure Detail Performing Clinician Start: 09-08-2017 Gynecologic examination Encounter for gynecological examination (general) (routine) with abnormal findings Tracey Mccann MD Start: 09-08-2017 End: 09-08-2017 Documentation of current medications Tracey Mccann MD Start: 08-22-2017 Screening mammography Screening mammogram for breast cancer Tracey Mccann MD Plan of Treatment Date Care Activity Detail Author Start: 09-08-2017 End: 09-08-2017 Appointment Appointment [facility] Start: 08-22-2017 End: 08-25-2017 Mammogram, screening Mammogram, Screening, both breasts [facility] Additional Source Comments FOR RECORDS PERTAINING TO PATIENTS WHO ARE OR HAVE BEEN ENROLLED IN A CHEMICAL DEPENDENCY/SUBSTANCEABUSE PROGRAM, SOME INFORMATION MAY BE OMITTED. This clinical summary was aggregated from multiple sources. Caution should be exercised in using it in the provision of clinical care. This summary normalizes information from multiple sources, and as a consequence, information in this document may materially change the coding, format and clinical context of patient data. In addition, data may be omitted in some cases. CLINICAL DECISIONS SHOULD BE BASED ON THE PRIMARY CLINICAL RECORDS. [facility] [employer] [facility]. provides no warranty or guarantee of the accuracy or completeness of information in this document.
[2023-12-18 10:31] LABS: ALB/GLOB Ratio 0.9 RATIO (0.9-2.4); AST(SGOT) 14 U/L (15-37); Alanine Aminotransfer ALT/SGPT 19 U/L (13-56); Albumin, Serum 3.5 g/dL (3.2-5.0); Alkaline Phosphatase 88 U/L (45-117); Anion Gap 3 (5-15); BUN 14 mg/dL (7-18); Calcium,Total 9.1 mg/dL (8.5-10.1); Chloride 110 mmol/L (98-107); Cholesterol 232 mg/dL (200); Creatinine, Serum 0.56 mg/dL (0.55-1.02); EST Glomerular Filtration Rate 113 mL/min (>60); Est Glom Filt Rate - Afr Amer 137 mL/min (>60); Free T3 1.8 pg/mL (2.18-3.98); Globulin 3.8 g/dL (2.2-4.2); Glucose 89 mg/dL (74-106); High Density Lipoprotein 99 mg/dL; Potassium 3.9 mmol/L (3.5-5.1); Protein, Total 7.3 g/dL (6.4-8.2); Sodium Level 140 mmol/L (136-145); T4 Free Direct 1.03 ng/dL (0.76-1.46); Thyroid Stim Hormone (TSH) 2.16 uIU/mL (0.358-3.74); Triglycerides 63 mg/dL; Very Low Density Lipoprotein 13 mg/dL (5-40)
[2023-12-18 10:59] LABS: Creatinine, Urine (random) < 13.00 mg/dL (NO RANGE EST.); Microalbumin,Random Urine < 5.0 mg/L (NO RANGE EST.)
== END | disposition home or self-care (01) ==
LOC: MTLAB 08:53
PROVIDERS: PCP Family Medicine; Referring Provider Family Medicine; Visit Provider Family Medicine
DX: M85.80 Other specified disorders of bone density and structure, unspecified site (principal); E03.9 Hypothyroidism, unspecified; I10 Essential (primary) hypertension
CPT/HCPCS: 36415; 80053; 80061; 82043; 82306; 82570; 84439; 84443; 84481

== ENCOUNTER → 2024-06-15 | Outpatient (CLI) | payer MEDICARE, OTHER, SELFPAY ==
[2024-06-15 12:46] LABS: Anion Gap 4 (5-15); BUN 20 mg/dL (7-18); BUN/Creat Ratio 33.4 RATIO (10-20); Calcium,Total 9.1 mg/dL (8.5-10.1); Chloride 109 mmol/L (98-107); EST Glomerular Filtration Rate 105 mL/min (>60); Est Glom Filt Rate - Afr Amer 127 mL/min (>60); Glucose 90 mg/dL (74-106); Potassium 4.2 mmol/L (3.5-5.1); Sodium Level 141 mmol/L (136-145)
== END | disposition home or self-care (01) ==
LOC: MFPLAB 09:35
PROVIDERS: PCP Family Medicine; Visit Provider Family Medicine
DX: I10 Essential (primary) hypertension (principal)
CPT/HCPCS: 36415; 80048

== ENCOUNTER → 2024-11-26 | Outpatient (CLI) | payer MEDICARE, OTHER, SELFPAY ==
--- NOTE | 2024-11-26 10:18 | BI_ITS ---
MAMMOGRAPHY - BILATERAL SCREENING REASON FOR EXAM: Female, 74 years old. Routine annual screening examination. PERTINENT HISTORY: Sister with breast cancer. Mother with breast cancer. TECHNIQUE: Digital bilateral breast kirti (3D mammographic acquisition) in the CC and MLO projections. 2-D mediolateral oblique (MLO) and craniocaudad (CC) views of both breasts were obtained. CAD: Full Field Digital Mammography with Computer Added Detection was performed. COMPARISON: Comparison is made with prior study dated May 25, 2024 and November 21, 2022. FINDINGS: Breast Composition: There are scattered areas of fibroglandular density. There are no dominant masses or suspicious calcifications. No other significant abnormalities are identified. There has been no significant change since the prior study. BI/SCRN MAMM (CAD)W/KIRTI BILAT IMPRESSION: Stable bilateral screening mammogram. Yearly follow-up mammogram recommended. (A) ASSESSMENT CATEGORY: BIRADS Category 1: Negative. A letter regarding these results will be sent to the patient by the facility within 30 days. Approximately 10% of breast cancers are not detected by mammography. A normal mammogram should not delay biopsy of a clinically suspicious abnormality. [id number] Electronically Signed: Anton Love MD at 11:50 EST ,
== END | disposition home or self-care (01) ==
LOC: OPBI 10:18
PROVIDERS: PCP Family Medicine; Referring Provider Obstetrics & Gynecology; Visit Provider Obstetrics & Gynecology
DX: Z12.31 Encounter for screening mammogram for malignant neoplasm of breast (principal); Z80.3 Family history of malignant neoplasm of breast
CPT/HCPCS: 77063; 77067

== ENCOUNTER → 2025-01-07 | Outpatient (CLI) | payer MEDICARE, OTHER, SELFPAY ==
[2025-01-07 13:00] LABS: Vitamin D,25 Hydroxy 65.2 ng/mL
[2025-01-07 13:09] LABS: ALB/GLOB Ratio 0.9 RATIO (0.9-2.4); AST(SGOT) 22 U/L (15-37); Alanine Aminotransfer ALT/SGPT 20 U/L (13-56); Albumin, Serum 3.3 g/dL (3.2-5.0); Alkaline Phosphatase 77 U/L (45-117); Anion Gap 7 (5-15); BUN 16 mg/dL (7-18); BUN/Creat Ratio 24.5 RATIO (10-20); Calcium,Total 9.4 mg/dL (8.5-10.1); Chloride 106 mmol/L (98-107); Cholesterol 234 mg/dL (200); Creatinine, Serum 0.65 mg/dL (0.55-1.02); EST Glomerular Filtration Rate 94 mL/min (>60); Est Glom Filt Rate - Afr Amer 114 mL/min (>60); Globulin 3.7 g/dL (2.2-4.2); Glucose 86 mg/dL (74-106); High Density Lipoprotein 97 mg/dL; Potassium 3.8 mmol/L (3.5-5.1); Sodium Level 140 mmol/L (136-145); Triglycerides 98 mg/dL; Very Low Density Lipoprotein 20 mg/dL (5-40)
[2025-01-07 14:00] LABS: Microalbumin,Random Urine < 5.0 mg/L (NO RANGE EST.)
== END | disposition home or self-care (01) ==
LOC: MFPLAB 10:08
PROVIDERS: PCP Family Medicine; Referring Provider Family Medicine; Visit Provider Family Medicine
DX: I10 Essential (primary) hypertension (principal); E03.9 Hypothyroidism, unspecified; M85.80 Other specified disorders of bone density and structure, unspecified site
CPT/HCPCS: 36415; 80053; 80061; 82043; 82306; 82570; 84443

== ENCOUNTER → 2025-01-13 | Outpatient (CLI) | payer MEDICARE, OTHER, SELFPAY ==
--- NOTE | 2025-01-13 15:00 | BD_ITS ---
PROCEDURE: DEXA BONE DENSITY STUDY REASON FOR EXAM: F, age 74 y/o . Postmenopausal. TECHNIQUE: DEXA scan of the lumbar spine and both hips. COMPARISON: Comparison is made with prior study dated November 28, 2022. FINDINGS: Lumbar Spine (L1-L4): g/cm2 (0.978)/T-score (-0.6)/Z-score (1 points) findings are suggestive of normal with a low fracture risk. Left Femur Total: g/cm2 (0.718)/T-score (-1.8)/Z-score (-0.2) Left Femoral Neck: g/cm2 (0.629)/T-score (-2.0)/Z-score (0.0) Right Femur Total: g/cm2 (0.697)/T-score (-2.0)/Z-score (-0.4) Right Femoral Neck: g/cm2 (0.611)/T-score (-2.1)/Z-score (-0 point) The T-Scores on the most recent prior examination were: Lumbar Spine (L1-L4): There has been improvement of bone density since the previous examination. Left Femur Total: Improvement of 0.1%. Right Femur Total: Loss of 1.3%. BD/Dexa Bone Density Study IMPRESSION: The patient is considered osteo tenia as outlined below according to World [employer] Organization (WHO) criteria with a moderate fracture risk. There has been improvement of bone density since the previous e xamination. Reading Location: [facility]
== END | disposition home or self-care (01) ==
LOC: OPBD 14:59
PROVIDERS: PCP Family Medicine; Referring Provider Family Medicine; Visit Provider Family Medicine
DX: N95.9 Unspecified menopausal and perimenopausal disorder (principal)
CPT/HCPCS: 77080

== ENCOUNTER → 2025-06-20 | Outpatient (CLI) | payer MEDICARE, OTHER, SELFPAY ==
[2025-06-20 10:55] LABS: Hematocrit 39.1 % (37-47); Hemoglobin 12.8 g/dL (12.0-15.0); Immature Granulocytes Count 0.020 X10^3/uL (0.0-0.0); Mean Corp Hgb Conc 32.7 g/dL (32-36); Mean Corpuscular Volume 97.8 fL (81-99); Mean Platelet Vol. 10.1 fl (6.2-12.0); NRBC Flagged by Analyzer 0 % (0-5); Platelet Count 270 K/mm3 (150-450); RBC Distribution Width CV 13.0 % (11.6-14.6); RBC Distribution Width SD 46.7 fl (35.1-43.9); Red Blood Count 4.00 M/mm3 (4.2-5.4); White Blood Count 4.7 K/mm3 (4.4-11.0)
[2025-06-20 11:31] LABS: AST(SGOT) 22 U/L (<=31); Alanine Aminotransfer ALT/SGPT 14 U/L (<=34); Albumin, Serum 4.1 g/dL (3.4-4.8); Alkaline Phosphatase 87 U/L (35-104); Anion Gap 11 (5-15); BUN 16 mg/dL (4-19); BUN/Creat Ratio 26.1 RATIO (10-20); CRP < 3.00 mg/L (0.0-3.0); Calcium,Total 9.6 mg/dL (7.6-11.0); Carbon Dioxide 26.5 mmol/L (21.0-32.0); Chloride 105 mmol/L (98-108); Globulin 2.8 g/dL (2.2-4.2); Glucose 106 mg/dL (70-99); Potassium 3.8 mmol/L (3.3-5.1)
[2025-06-21 13:08] LABS: ANTINUCLEAR ANTIBODIES DIRECT Negative (Negative)
== END | disposition home or self-care (01) ==
LOC: MFPLAB 09:02
PROVIDERS: PCP Family Medicine; Visit Provider Family Medicine
DX: R53.83 Other fatigue (principal)
CPT/HCPCS: 36415; 80053; 85025; 86038; 86140

== ENCOUNTER → 2025-08-30 | Outpatient (CLI) | payer MEDICARE, OTHER, SELFPAY ==
--- NOTE | 2025-08-30 15:49 | CT_ITS ---
PROCEDURE: EXTREMITY LOWER WITHOUT CONTRA 08/30/2025 REASON FOR EXAM: SPRAIN OF OTHER SPECIFIED PARTS OF RIGHT KNEE, INITIAL ENCOUNTER TECHNIQUE: Procedure Code: CTELWO Modality: CT Procedure: EXTREMITY LOWER WITHOUT CONTRA Coronal and Sagittal reconstruction series were provided. CONTRAST: None One or more dose reduction techniques were used (e.g., Automated exposure control, adjustment of the mA and/or kV according to patient size, use of iterative reconstruction technique). RADIATION DOSE SUMMARY: DLP: 1064 mGycm COMPARISON: None FINDINGS: There is yypg-ua-javfpjgb tricompartment osteoarthritis, most severe in the lateral compartment. There is mild joint space narrowing with marginal osteophytes. There is a trace joint effusion. No fracture seen. There is no loose body identified. There is a Gurrola's cyst measuring 6.7 by 1.6 by 2.7 cm. Mineralization is normal. There is no visible atherosclerosis. CT/Extremity Lower without Contra IMPRESSION: There is byjm-sw-wtlpipuy tricompartment osteoarthritis, most severe in the lat eral compartment. There is a trace joint effusion. There is a Gurrola's cyst measuring 6.7 by 1.6 by 2.7 cm. Reading Location: [facility]
== END | disposition home or self-care (01) ==
LOC: CT 15:47
PROVIDERS: PCP Family Medicine; Referring Provider Orthopaedic Surgery; Visit Provider Orthopaedic Surgery
DX: S83.8X1A Sprain of other specified parts of right knee, initial encounter (principal); M25.561 Pain in right knee
CPT/HCPCS: 73700

== ENCOUNTER → 2025-10-11 | Outpatient (CLI) | payer MEDICARE, OTHER, SELFPAY ==
--- NOTE | 2025-10-11 09:08 | EKG12_ITS ---
Test Reason : PREOP Blood Pressure : */* mmHG Vent. Rate : 80 BPM Atrial Rate : 80 BPM P-R Int : 170 ms QRS Dur : 88 ms QT Int : 390 ms P-R-T Axes : 62 50 68 degrees QTcB Int : 449 ms Normal sinus rhythm Possible Left atrial enlargement Borderline ECG Confirmed by JENNIFER DELUCA, THERESE ([id number]), editor news ROBBIE FUENTES ([id number]) on 10/12/2025 9:04:14 AM Referred By: Deven Renae Confirmed By: THERESE RODRIGUEZ MD
[2025-10-11 10:22] LABS: Hematocrit 40.1 % (37-47); Hemoglobin 13.7 g/dL (12.0-15.0); Immature Granulocytes Count 0.010 X10^3/uL (0.0-0.0); Mean Corp Hgb Conc 34.2 g/dL (32-36); Mean Corpuscular Volume 91.8 fL (81-99); Mean Platelet Vol. 10.5 fl (6.2-12.0); NRBC Flagged by Analyzer 0 % (0-5); Platelet Count 235 K/mm3 (150-450); RBC Distribution Width CV 13.8 % (11.6-14.6); RBC Distribution Width SD 46.9 fl (35.1-43.9); Red Blood Count 4.37 M/mm3 (4.2-5.4); White Blood Count 5.6 K/mm3 (4.4-11.0)
[2025-10-11 10:58] LABS: Albumin, Serum 4.1 g/dL (3.4-4.8); Anion Gap 12 (5-15); BUN 17 mg/dL (4-19); BUN/Creat Ratio 28.5 RATIO (10-20); Calcium,Total 8.9 mg/dL (7.6-11.0); Carbon Dioxide 26.4 mmol/L (21.0-32.0); Chloride 103 mmol/L (98-108); Glucose 85 mg/dL (70-99); Potassium 4.1 mmol/L (3.3-5.1)
== END | disposition home or self-care (01) ==
LOC: PSN 08:58
PROVIDERS: PCP Family Medicine; Referring Provider Orthopaedic Surgery; Visit Provider Orthopaedic Surgery
DX: Z01.818 Encounter for other preprocedural examination (principal)
CPT/HCPCS: 36415; 80048; 82040; 85025; 93005

== ENCOUNTER → 2025-10-31 | Outpatient (CLI) | payer MEDICARE, OTHER, SELFPAY ==
--- NOTE | 2025-10-28 10:00 | KNEE_PTH ---
PATIENT: GRACIE CASTRO [facility] U#:[id number] AGE/SX: 75/F ROOM: RE10/31/[address]: Dr. Deven Renae MD : 1950 BED: DIS: 10/31/2025 SPEC #: [id number] RECD: 10/31/25 14:54 STATUS: DWAINE REQ #: [id number] JUANCARLOS: 10/28/25 10:[address]: Deven Renae DEPT: SURGICAL PATHOLOGY RECD BY: Domingo Gerard ENTERED: 11/01/25 09:56 SP TYPE: TOTAL KNEE OTHR DR: Dr. Eleazar Baeza MD Tissues: A - Knee, NOS Procedures: Decalcification bone/plaque Surgery Specimen Level III HEADER OPERATION: Right total knee arthroplasty PRE-OP DIAGNOSIS: Pain in right knee, unilateral primary osteoarthritis, right knee TISSUE SUBMITTED: A- Right knee bone and tissue MICROSCOPIC DIAGNOSIS A. Bone and soft tissue, knee, right, total knee arthroplasty: MICROSCOPIC DESCRIPTION Slides are reviewed. GROSS DESCRIPTION A. Received in formalin labeled with the patient's name and date of . Designated as right knee bone and tissue is a 12.2 x 8.5 x 2.7 cm aggregate of irregular, meza-yellow bone and tissue fragments, collectively comprising a knee joint. The articular surfaces are meza-yellow to white and granular with marked eburnation and mild peripheral osteophyte formation. Separately, there is a 1.9 x 0.7 x 0.4 cm possible body. Sample Supervisor sections are submitted in 2 cassettes, following decalcification. [place] 11/01/2025 CPT:43756,12386
== END | disposition home or self-care (01) ==
LOC: LABSPEC 15:36
PROVIDERS: PCP Family Medicine; Referring Provider Orthopaedic Surgery; Visit Provider Orthopaedic Surgery
DX: M17.11 Unilateral primary osteoarthritis, right knee (principal); M25.561 Pain in right knee
CPT/HCPCS: 88304; 88311